=== PATIENT | female | born 1995 | race Caucasian/White ===

== ENCOUNTER 2018-02-19 09:25 | Emergency (ER) | payer OTHER ==
[2018-02-19 09:38] VITALS: RESP 16; TEMP 98.2
[2018-02-19] MEDS ORDERED: SODIUM CHLORIDE 0.9% 1,000 ML IV ONE (10:09)
[2018-02-19] MEDS ORDERED: KETOROLAC 30 MG/ML 1 ML VIAL IVP STA (10:09)
--- NOTE | 2018-02-19 10:12 | ED ---
Female Urogenital HPI - General Chief complaint: Vaginal Bleeding Stated complaint: Vaginal bleeding Time Seen by Provider: 02/19/18 09:47 Source: patient, RN notes reviewed, old records reviewed Mode of arrival: ambulatory Limitations: no limitations - History of Present Illness Initial comments: This patient's a 23-year-old female presents emergency Department here tingling vaginal bleeding. Patient reports that she had her last menstrual period which ended 4 days ago. This is abnormal time for any bleeding. She does have the next one on she's had this in her arm for 3 years. Patient reports this was placed by Dr. Jordan, her EVAPORATOR OPERATOR. She has had history of 2 children. Patient states that today she's been having increased bleeding, and went through 3 tampons within the past 3 hours. Patient states that she is feeling shaky, complains of vaginal cramping. She does have history of ovarian cysts. Last Menstrual Period: 02/15/18 - Related Data Previous Rx's Medication Instructions Recorded HYDROcodone/APAP 5-325MG [[place] 1 tab PO Q6HR PRN #10 tab 05/14/16 5-325] Ibuprofen [Motrin] 600 mg PO Q6HR PRN #30 tab 05/14/16 Orphenadrine [Norflex] 100 mg PO Q12H PRN #12 tablet.er 05/14/16 Acyclovir 400 mg PO TID 10 Days tablet 05/19/16 Sulfamethoxazole/Trimethoprim 1 each PO Q12H 10 Days tab 05/19/16 [Bactrim DS 800-160 mg] Nitrofurantoin Monohyd/M-Cryst 100 mg PO Q12HR #14 cap 02/19/18 [Macrobid] Allergies Allergy/AdvReac Type Severity Reaction Status Date / Time No Known Allergies Allergy Verified 02/19/18 09:37 Review of Systems ROS Statement: Those systems with pertinent positive or pertinent negative responses have been documented in the HPI. ROS Other: All systems not noted in ROS Statement are negative. Past Medical History Past Medical History: No Reported History History of Any Multi-Drug Resistant Organisms: None Reported Past Surgical History: No Surgical Hx Reported Past Anesthesia/Blood Transfusion Reactions: No Reported Reaction Past Psychological History: No Psychological Hx Reported Smoking Status: Never smoker Past Alcohol Use History: Occasional Past Drug Use History: None Reported General Exam - General Exam Comments Initial Comments: This is a 23-year-old female. Alert and oriented. No significant distress. Limitations: no limitations General appearance: alert, in no apparent distress Head exam: Present: atraumatic, normocephalic, normal inspection Eye exam: Present: normal appearance, PERRL, EOMI. Absent: scleral icterus, conjunctival injection, periorbital swelling ENT exam: Present: normal exam, mucous membranes moist Neck exam: Present: normal inspection. Absent: tenderness, meningismus, lymphadenopathy Respiratory exam: Present: normal lung sounds bilaterally. Absent: respiratory distress, wheezes, rales, rhonchi, stridor Cardiovascular Exam: Present: regular rate, normal rhythm, normal heart sounds. Absent: systolic murmur, diastolic murmur, rubs, gallop, clicks GI/Abdominal exam: Present: soft, normal bowel sounds. Absent: distended, tenderness, guarding, rebound, rigid Extremities exam: Present: normal inspection, full ROM, normal capillary refill. Absent: tenderness, pedal edema, joint swelling, calf tenderness Back exam: Present: normal inspection Neurological exam: Present: alert, oriented X3, CN II-XII intact Psychiatric exam: Present: normal affect, normal mood Skin exam: Present: warm, dry, intact, normal color. Absent: rash Course Vital Signs 02/19/18 09:33 Temperature 98.2 F Pulse Rate 68 Respiratory 16 Rate Blood Pressure 139/76 O2 Sat by Pulse 100 Oximetry Medical Decision Making - Medical Decision Making 23-year-old female presents for his pharmacy with increased vaginal bleeding onset today. Patient's last menstrual period was actually 4 days ago. She is concerned for what she is having bleeding at this time. Asians bleeding is most likely due to the fact that she is needing replacement of her Implanon control. She does report some cramping pain. She does have history of ovarian cysts. This in THE SHOW FOR SIMILAR LEFT OVARIAN CYST. PATIENT DOES HAVE SOME BLEEDING ON VAGINAL EXAM, NO CERVICAL MOTION TENDERNESS. I DID OBTAIN GENITAL CULTURES. PATIENT LABWORK WAS OTHERWISE UNREMARKABLE. URINALYSIS IS POSITIVE FOR MILD INFECTION POSITIVE NITRATE. WE'LL PUT THE PATIENT ON MACROBID FOR A UTI. I DID DISCUSS CLOSE FOLLOW-UP WITH PRIMARY CARE PHYSICIAN. PATIENT HISTORY PLAN WILL COMPLY. RETURN PARAMETERS WERE DISCUSSED. - Lab Data Result diagrams: 02/19/18 10:15 02/19/18 10:15 Lab Results 02/19/18 02/19/18 02/19/18 Range/Units 10:15 10:15 10:15 WBC 9.4 (3.8-10.6) k/uL RBC 4.69 (3.80-5.40) m/uL Hgb 13.0 (11.4-16.0) gm/dL Hct 38.8 (34.0-46.0) % MCV 82.7 (80.0-100.0) fL MCH 27.8 (25.0-35.0) pg MCHC 33.6 (31.0-37.0) g/dL RDW 13.6 (11.5-15.5) % Plt Count 261 (150-450) k/uL Neutrophils % 70 % Lymphocytes % 26 % Monocytes % 3 % Eosinophils % 1 % Basophils % 0 % Neutrophils # 6.6 (1.3-7.7) k/uL Lymphocytes # 2.4 (1.0-4.8) k/uL Monocytes # 0.3 (0-1.0) k/uL Eosinophils # 0.1 (0-0.7) k/uL Basophils # 0.0 (0-0.2) k/uL PT (9.0-12.0) sec INR (<1.2) APTT (22.0-30.0) sec Sodium 138 (137-145) mmol/L Potassium 4.7 (3.5-5.1) mmol/L Chloride 106 (98-107) mmol/L Carbon Dioxide 25 (22-30) mmol/L Anion Gap 7 mmol/L BUN 16 (7-17) mg/dL Creatinine 0.51 L (0.52-1.04) mg/dL Est GFR (CKD-EPI)AfAm >90 (>60 ml/min/1.73 sqM) Est GFR (CKD-EPI)NonAf >90 (>60 ml/min/1.73 sqM) Glucose 92 (74-99) mg/dL Calcium 10.4 H (8.4-10.2) mg/dL Total Bilirubin 0.4 (0.2-1.3) mg/dL AST 24 (14-36) U/L ALT 34 (9-52) U/L Alkaline Phosphatase 54 (38-126) U/L Total Protein 6.9 (6.3-8.2) g/dL Albumin 4.1 (3.5-5.0) g/dL Urine Color Urine Appearance (Clear) Urine pH (5.0-8.0) Ur Specific [place] (1.001-1.035) Urine Protein (Negative) Urine Glucose (UA) (Negative) Urine Ketones (Negative) Urine Blood (Negative) Urine Nitrite (Negative) Urine Bilirubin (Negative) Urine Urobilinogen (<2.0) mg/dL Ur Leukocyte Esterase (Negative) Urine RBC (0-5) /hpf Urine WBC (0-5) /hpf Ur Squamous Epith Cells (0-4) /hpf Urine Bacteria (None) /hpf Urine Mucus (None) /hpf Urine HCG, Qual Not Detected (Not Detectd) 02/19/18 02/19/18 Range/Units 10:15 10:15 WBC (3.8-10.6) k/uL RBC (3.80-5.40) m/uL Hgb (11.4-16.0) gm/dL Hct (34.0-46.0) % MCV (80.0-100.0) fL MCH (25.0-35.0) pg MCHC (31.0-37.0) g/dL RDW (11.5-15.5) % Plt Count (150-450) k/uL Neutrophils % % Lymphocytes % % Monocytes % % Eosinophils % % Basophils % % Neutrophils # (1.3-7.7) k/uL Lymphocytes # (1.0-4.8) k/uL Monocytes # (0-1.0) k/uL Eosinophils # (0-0.7) k/uL Basophils # (0-0.2) k/uL PT 9.8 (9.0-12.0) sec INR 1.0 (<1.2) APTT 23.2 (22.0-30.0) sec Sodium (137-145) mmol/L Potassium (3.5-5.1) mmol/L Chloride (98-107) mmol/L Carbon Dioxide (22-30) mmol/L Anion Gap mmol/L BUN (7-17) mg/dL Creatinine (0.52-1.04) mg/dL Est GFR (CKD-EPI)AfAm (>60 ml/min/1.73 sqM) Est GFR (CKD-EPI)NonAf (>60 ml/min/1.73 sqM) Glucose (74-99) mg/dL Calcium (8.4-10.2) mg/dL Total Bilirubin (0.2-1.3) mg/dL AST (14-36) U/L ALT (9-52) U/L Alkaline Phosphatase (38-126) U/L Total Protein (6.3-8.2) g/dL Albumin (3.5-5.0) g/dL Urine Color Yellow Urine Appearance Cloudy H (Clear) Urine pH 6.5 (5.0-8.0) Ur Specific [place] 1.022 (1.001-1.035) Urine Protein Trace H (Negative) Urine Glucose (UA) Negative (Negative) Urine Ketones Negative (Negative) Urine Blood Moderate H (Negative) Urine Nitrite Positive H (Negative) Urine Bilirubin Negative (Negative) Urine Urobilinogen <2.0 (<2.0) mg/dL Ur Leukocyte Esterase Trace H (Negative) Urine RBC 1 (0-5) /hpf Urine WBC 2 (0-5) /hpf Ur Squamous Epith Cells 5 H (0-4) /hpf Urine Bacteria Occasional H (None) /hpf Urine Mucus Occasional H (None) /hpf Urine HCG, Qual (Not Detectd) - Radiology Data Radiology results: report reviewed Overall some appearing left ovarian cyst measuring 4.7 cm. No evidence of ovarian torsion however greater then 2.5 cm this can have increased risk for vision torsion. Small amount of pelvic fluid is likely physiologic. Disposition Clinical Impression: Abnormal uterine bleeding, UTI (urinary tract infection) Disposition: HOME SELF-CARE Condition: Good Instructions: Urinary Tract Infection in Women (ED), Dysfunctional Uterine Bleeding (ED) Additional Instructions: Patient advised to follow-up with primary care physician and EVAPORATOR OPERATOR about abnormal uterine bleeding and needing replacement of your Implanon or having it removed. Return to the emergency department if any alarming signs or symptoms occur. Prescriptions: Nitrofurantoin Monohyd/M-Cryst [Macrobid] 100 mg PO Q12HR #14 cap Is patient prescribed a controlled substance at d/c from ED?: No Referrals: None,Stated [Primary Care Provider] - 1-2 days Xiomy Howell MD [STAFF PHYSICIAN] - 1-2 days Time of Disposition: 11:52
[2018-02-19 10:45] LABS: Basophils % (A) 0 %; Eosinophils # (A) 0.1 k/uL (0-0.7); Eosinophils % (A) 1 %; HCT 38.8 % (34.0-46.0); Lymphocytes # (A) 2.4 k/uL (1.0-4.8); Lymphocytes % (A) 26 %; MCH 27.8 pg (25.0-35.0); MCHC 33.6 g/dL (31.0-37.0); MCV 82.7 fL (80.0-100.0); Mean Platelet Volume 7.8; Monocytes # (A) 0.3 k/uL (0-1.0); Monocytes % (A) 3 %; Neutrophils # (A) 6.6 k/uL (1.3-7.7); Neutrophils % (A) 70 %; Platelet Count 261 k/uL (150-450); RBC 4.69 m/uL (3.80-5.40); RDW 13.6 % (11.5-15.5); WBC 9.4 k/uL (3.8-10.6)
[2018-02-19 10:54] LABS: Partial Thromboplastin Time 23.2 sec (22.0-30.0); Prothrombin Time 9.8 sec (9.0-12.0)
[2018-02-19 10:55] LABS: ALT 34 U/L (9-52); AST 24 U/L (14-36); Albumin 4.1 g/dL (3.5-5.0); Alkaline Phosphatase 54 U/L (38-126); Anion Gap 7 mmol/L; Blood Urea Nitrogen 16 mg/dL (7-17); Calcium 10.4 mg/dL (8.4-10.2); Carbon Dioxide 25 mmol/L (22-30); Chloride 106 mmol/L (98-107); Glucose 92 mg/dL (74-99); Potassium 4.7 mmol/L (3.5-5.1); Sodium 138 mmol/L (137-145); Total Bilirubin 0.4 mg/dL (0.2-1.3); Total Protein 6.9 g/dL (6.3-8.2)
--- NOTE | 2018-02-19 11:23 | US ---
EXAMINATION TYPE: US transvaginal DATE OF EXAM: 02/19/2018 COMPARISON: NONE CLINICAL HISTORY: Pain. Patient states her period ending 4 days ago and she is now having pelvic cram ping and bleeding today, irregular cycles, 2, para 2, on control. TECHNIQUE: Transvaginal ER exam. Date of LMP: 02/10/2018 EXAM MEASUREMENTS: Uterus: 9.0 x 4.5 x 5.8 cm Endometrial Stripe: 0.6 cm Right Ovary: 3.7 x 2.6 x 2.2 cm Left Ovary: 5.9 x 4.0 x 4.3 cm 1. Uterus: anteverted 2. Endometrium: wnl 3. Right Ovary: multiple follicles, largest = 1.4cm 4. Left Ovary: 4.7 x 3.4 x 3.8cm cyst Spectral, color and waveform doppler imaging shows good arterial and venous flow within the ovaries ; there is no evidence for ovarian torsion. 5. Bilateral Adnexa: small amount of free fluid seen adjacent to both ovaries 6. Posterior cul-de-sac: small amount of free fluid seen IMPRESSION: Overall simple appearing left ovarian cyst measuring up to 4.7 cm. No current evidence of ovarian torsion, however greater than 25 cm cysts can increase the risk for ovarian torsion. Small a mount of pelvic fluid is likely physiologic in nature.
[2018-02-19 11:42] LABS: Appearance,Urine Cloudy (Clear); Bacteria,Urine Occasional /hpf; Bilirubin,Urine Negative (Negative); Blood,Urine Moderate (Negative); Color,Urine Yellow; Glucose,Urine (UA) Negative (Negative); Ketones,Urine Negative (Negative); Leukocyte Esterase,Urine Trace (Negative); Mucus,Urine Occasional /hpf; Nitrite,Urine Positive (Negative); PH, Urine 6.5 (5.0-8.0); Protein,Urine Trace (Negative); RBC,Urine 1 /hpf (0-5); Specific Gravity,Urine 1.022 (1.001-1.035); Squamous Epithelial Cell,Urine 5 /hpf (0-4); Urobilinogen,Urine <2.0 mg/dL (<2.0); WBC,Urine 2 /hpf (0-5)
[2018-02-19 12:12] VITALS: BP 129/80; PULSE 60
[2018-02-20 14:04] LABS: C. trachomatis,PCR Negative (Neg,Equiv); Chlamydia trachomatis Source Vagina; N. gonorrhoeae,PCR Negative (Neg,Equiv); Neisseria Source Vagina
== END 2018-02-19 12:25 | disposition home or self-care (01) ==
LOC: EC 09:25
DX: N93.9 Abnormal uterine and vaginal bleeding, unspecified (principal); N39.0 Urinary tract infection, site not specified; N83.202 Unspecified ovarian cyst, left side
CPT/HCPCS: 36415; 80053; 85025; 85610; 85730; 81001; 81025; 87808; 87491; 87591; 87070; 87205; 93975; 76830; 99284; 96374; 96361; J1885

== ENCOUNTER 2020-05-29 06:15 | Inpatient (IN) | payer OTHER ==
[2020-05-29] MEDS ORDERED: OXYTOCIN 10 UNIT/ML 1 ML VIAL IM PRN (06:32)
[2020-05-29] MEDS ORDERED: METHYLERGONOVINE 0.2 MG/ML 1 ML AMP IM PRN (06:32)
[2020-05-29] MEDS ORDERED: TERBUTALINE 1 MG/ML VIAL SQ PRN (06:32)
[2020-05-29] MEDS ORDERED: LIDOCAINE 0.5% (PF) 5 MG/ML (50 ML SDV) SQ PRN (06:32)
[2020-05-29] MEDS ORDERED: CARBOPROST TROMETHAMINE 250 MCG/ML 1 ML AMP IM PRN (06:32)
[2020-05-29] MEDS: LACTATED RINGERS 1,000 ML IV SCH ×3 (06:45→16:55)
[2020-05-29] MEDS ORDERED: OXYTOCIN 30 UNITS/500 ML NS 30 UNIT in SALINE 1 500ML.BAG IV SCH (06:45)
[2020-05-29 07:05] LABS: Basophils % (A) 0 %; Eosinophils # (A) 0.1 k/uL (0-0.7); Eosinophils % (A) 1 %; HCT 31.7 % (34.0-46.0); HGB 10.7 gm/dL (11.4-16.0); Lymphocytes # (A) 2.7 k/uL (1.0-4.8); Lymphocytes % (A) 27 %; MCH 28.2 pg (25.0-35.0); MCHC 33.8 g/dL (31.0-37.0); MCV 83.3 fL (80.0-100.0); Mean Platelet Volume 8.7; Monocytes # (A) 0.3 k/uL (0-1.0); Monocytes % (A) 3 %; Neutrophils # (A) 6.7 k/uL (1.3-7.7); Neutrophils % (A) 68 %; Platelet Count 233 k/uL (150-450); RDW 14.7 % (11.5-15.5); WBC 9.9 k/uL (3.8-10.6)
[2020-05-29] MEDS ORDERED: BUTORPHANOL 1 MG/ML 1 ML VIAL IV PRN (08:42)
--- NOTE | 2020-05-29 08:47 | P.HPOB ---
History of Present Illness H&P Date: 05/29/20 Chief Complaint: 39-6/7 weeks, elective induction The patient is a 25-year-old 3 para 2 scissors or 2 admitted at 39-6/7 weeks as established by last menstrual period and confirmed by 20 week ultrasound. She is admitted for elective induction of labor with a favorable cervix. Her has been otherwise uncomplicated though she has expressed desire for tubal ligation should the opportunity to present itself while on labor and delivery. Consent was signed in the office. On labor and delivery, all signs are reassuring with a category 1 heart rate tracing. Group B strep status is negative. Obstetrical history: 3 para 2 scissors or 2 with 2 term vaginal deliveries without complications. Current statistics are listed in history of present illness. EDC of 05/30/2020 was established by last menstrual period and confirmed by 20 week ultrasound. Laboratory workup demonstrates a blood type of A+ with a negative antibody screen. Rubella status is immune. Remainder of the laboratory workup was within normal limits though she did have a urinary tract infection which was ultimately cured. One hour Glucola was normal and group B strep status is negative. Gynecologic history: Unremarkable with no history of any infections to include STDs. Review of Systems Review of systems is confined to history of present illness. Past Medical History Past Medical History: No Reported History History of Any Multi-Drug Resistant Organisms: None Reported Past Surgical History: No Surgical Hx Reported Past Anesthesia/Blood Transfusion Reactions: No Reported Reaction Past Psychological History: No Psychological Hx Reported Smoking Status: Never smoker Past Alcohol Use History: None Reported Past Drug Use History: None Reported Medications and Allergies Allergies Allergy/AdvReac Type Severity Reaction Status Date / Time No Known Allergies Allergy Verified 02/19/18 12:28 Exam Vital Signs Temp Pulse Resp BP Pulse Ox 05/29/20 06:29 97.0 F L 105 H 16 128/86 99 Intake and Output 05/28/20 05/29/20 05/29/20 22:59 06:59 14:59 Other: Weight 91.172 kg In general, this is a well-developed, well-nourished white female in no acute distress. Her heart has a regular rhythm and rate without murmur. Her lungs are clear to auscultation bilaterally in all fagan. Her abdomen is gravid, nondistended, has normal active bowel sounds, soft, nontender, and without any palpable masses aside from uterine fundus. Her extremities are without any cyanosis, clubbing, or edema and are nontender to palpation bilaterally. Digital cervical examination demonstrated her cervix to be 2 cm dilated, 50% effaced, the vertex in presentation at -2 station. Artificial rupture of membranes is carried out demonstrating copious clear fluid. Results Result Diagrams: 05/29/20 06:43 Abnormal Lab Results - Last 24 Hours (Table) 05/29/20 Range/Units 06:43 Hgb 10.7 L (11.4-16.0) gm/dL Hct 31.7 L (34.0-46.0) % Assessment and Plan (1) Term Current Visit: Yes Status: Acute Code(s): Z34.90 - ENCNTR FOR SUPRVSN OF NORMAL , UNSP, UNSP TRIMESTER SNOMED Code(s): 43484491 Plan: The patient is admitted for elective induction of labor. Pitocin augmentation has been started and she has undergone artificial rupture of membranes. She will have close maternal and surveillance and expectant management will be practice. She is a good candidate for either IV or epidural analgesia, whichever she may choose.
[2020-05-29] MEDS ORDERED: SODIUM CHLORIDE 0.9% 100 ML BAG ONE (13:21)
[2020-05-29] MEDS ORDERED: ROPIVACAINE 5MG/ML 20ML VIAL ONE (13:21)
[2020-05-29] MEDS ORDERED: fentaNYL (PF) 50 MCG/ML 5 ML AMP ONE (13:21)
[2020-05-29] MEDS ORDERED: BENZOCAINE/MENTHOL SPRAY 1 GM/SPRAY AEROSOL TOPICAL PRN (17:38)
[2020-05-29] MEDS ORDERED: diphenhydrAMINE 25 MG CAP PO PRN (17:38)
[2020-05-29] MEDS ORDERED: diphenhydrAMINE 50 MG CAP PO PRN (17:38)
[2020-05-29] MEDS ORDERED: diphenhydrAMINE 50 MG/ML 1 ML VIAL IVP PRN ×2 (17:38)
[2020-05-29] MEDS ORDERED: ZOLPIDEM 5 MG TAB PO PRN (17:38)
[2020-05-29] MEDS ORDERED: ACETAMINOPHEN TAB 325 MG TAB PO PRN (17:38)
[2020-05-29] MEDS ORDERED: HYDROcodone/APAP 7.5-325MG 1 EACH TAB PO PRN (17:38)
[2020-05-29] MEDS ORDERED: SIMETHICONE 80 MG CHEWABLE PO PRN (17:38)
[2020-05-29] MEDS ORDERED: HYDROcodone/APAP 5-325MG 1 EACH TAB PO PRN (17:38)
[2020-05-29] MEDS ORDERED: HYDROCORTISONE 2.5% RECTAL CREAM 30 GM TUBE RECTAL PRN (17:38)
--- NOTE | 2020-05-29 17:41 | P.PROBDLV ---
Vaginal Delivery Note - . Vaginal Delivery Note: The patient is a 25-year-old 3 para 2 scissors or 2 admitted at 39-6/7 weeks by good dating parameters perches admitted for elective induction of labor with all signs reassuring. Her has been uncomplicated and group B strep status is negative. On labor and delivery, she had Pitocin started followed by artificial rupture of membranes for clear fluid of which there was a great deal. She made progress into the active phase of labor which time an ep idural catheter was placed for analgesia. She then made steady progress through the active phase to complete and pushed over the course of approximately 20 minutes to a normal spontaneous vaginal delivery of a viable 8 lbs. 1 oz. baby boy with Apgars of 8 at 1 minute and 9 at 5 minutes delivered in the right occiput anterior position. The placenta was delivered spontaneously, intact, and grossly normal with a grossly normal, centrally inserted three-vessel cord. There were no significant lacerations of the perineum, vagina, or cervix. Estimated blood loss was approximately 150 mL. There were no complications. All sponge, instrument, and needle counts were correct. Both mother and are resting comfortably in recovery.
[2020-05-29] MEDS ORDERED: OXYTOCIN 20 UNITS/1000 ML NS 1,000 ML IV SCH (17:45)
[2020-05-29] MEDS: IBUPROFEN 600 MG TAB PO PRN (20:51)
[2020-05-29] MEDS: SENNOSIDES-DOCUSATE SODIUM 1 EACH TAB PO SCH (20:51)
[2020-05-30] MEDS: IBUPROFEN 600 MG TAB PO PRN (06:01)
[2020-05-30 08:10] LABS: Basophils % (A) 0 %; Eosinophils # (A) 0.1 k/uL (0-0.7); Eosinophils % (A) 1 %; HCT 28.8 % (34.0-46.0); HGB 9.8 gm/dL (11.4-16.0); Lymphocytes # (A) 2.6 k/uL (1.0-4.8); Lymphocytes % (A) 19 %; MCH 28.5 pg (25.0-35.0); MCHC 33.9 g/dL (31.0-37.0); MCV 84.1 fL (80.0-100.0); Mean Platelet Volume 9.4; Monocytes # (A) 0.7 k/uL (0-1.0); Monocytes % (A) 5 %; Neutrophils % (A) 74 %; Platelet Count 204 k/uL (150-450); RBC 3.42 m/uL (3.80-5.40); RDW 14.9 % (11.5-15.5); WBC 13.4 k/uL (3.8-10.6)
[2020-05-30] MEDS: SENNOSIDES-DOCUSATE SODIUM 1 EACH TAB PO SCH (10:02)
--- NOTE | 2020-05-30 11:10 | P.DS ---
Providers Date of admission: 05/29/20 06:16 Expected date of discharge: 05/30/20 Attending physician: Juanpablo Richards Primary care physician: Stated None - Discharge Diagnosis(es) (1) Term Current Visit: Yes Status: Acute (2) Normal spontaneous vaginal delivery Current Visit: Yes Status: Acute Hospital Course: The patient is a 25-year-old 3 para 2001 admitted at 39-6/7 weeks by good dating parameters. She is admitted for elective induction with favorable cervix. Her was uncomplicated though she has signed consent for tubal ligation which will be performed at approximate 5-6 weeks . On labor and delivery, all signs reassuring. She was group B strep status negative. She had Pitocin started followed by artificial rupture of membranes. She had an epidural catheter placed around the onset of the active phase of labor. She ultimately made progress to complete and then pushed to a normal spontaneous vaginal delivery of a viable 8 lbs. 1 oz. baby the boy with Apgars of 8 at 1 minute and 9 at 5 minutes. Her course was unremarkable vital signs or any stable and her temperature was afebrile throughout. She was deemed stable for discharge on day #1 was discharged home to follow-up in the office in 6 weeks' time routinely. Discharge instructions included calling for any significantly increased bleeding or foul-smelling lochia, significantly increased fever or abdominal pain, perineal complaints, breast complaints, or anything else that concerned her. She was additionally instructed to have nothing in the vagina for at least 6 weeks time to include intercourse. She understood her instructions and agrees to follow up as noted above. Discharge medications included only [id number] analgesic pain medications as needed. Maternal blood type is A+ and rubella status is immune. Procedures: #1. Pitocin induction #2. Artificial rupture of membranes #3. Epidural analgesia 4. Normal spontaneous vaginal delivery Patient Condition at Discharge: Stable Plan - Discharge Summary Follow up Appointment(s)/Referral(s): Juanpablo Richards MD [STAFF PHYSICIAN] - 6 Weeks Discharge Disposition: HOME SELF-CARE
[2020-05-30 16:00] VITALS: BP 125/70; PULSE 86; RESP 16; TEMP 98.5
== END 2020-05-30 18:10 | disposition home or self-care (01) | DRG 807 ==
LOC: 4FBP 06:16
PROVIDERS: ADMIT Obstetrics & Gynecology; ATTEND Obstetrics & Gynecology
PROC: 10E0XZZ Delivery of Products of Conception, External Approach (ICD-10-PCS; principal; 2020-05-29)
PROC: 10907ZC Drainage of Amniotic Fluid, Therapeutic from Products of Conception, Via Natural or Artificial Opening (ICD-10-PCS; 2020-05-29)
PROC: 3E033VJ Introduction of Other Hormone into Peripheral Vein, Percutaneous Approach (ICD-10-PCS; 2020-05-29)
PROC: 3E0R3BZ Introduction of Anesthetic Agent into Spinal Canal, Percutaneous Approach (ICD-10-PCS; 2020-05-29)
DX: O80 Encounter for full-term uncomplicated delivery (principal); Z37.0 Single live birth; Z3A.39 39 weeks gestation of pregnancy; Z87.440 Personal history of urinary (tract) infections
CPT/HCPCS: 85025; 86850; 86900; 86901

== ENCOUNTER 2022-09-19 00:08 | Inpatient (IN) | payer OTHER ==
--- NOTE | 2022-09-19 00:17 | ED ---
Chest Pain HPI - General Source: patient, RN notes reviewed Mode of arrival: ambulatory Limitations: no limitations - History of Present Illness MD Complaint: chest pain, other (Shortness of breath, headaches, leg swelling) Onset/Timin -: days(s) Context: recent surgery <Cait Noyola - Last Filed: 09/19/22 00:14> <Danie Telles - Last Filed: 09/19/22 03:08> - General Chief Complaint: Chest Pain Stated Complaint: Headache, Pain and Swelling in right leg Time Seen by Provider: 09/19/22 00:09 - History of Present Illness Initial Comments: This is a 27-year-old female who presents to the emergency department for right leg pain/swelling, headaches, chest pain, and shortness of breath. Patient had a 10 days ago and has felt ill ever since. 2 days ago, she started to notice pain and swelling to the right leg that seems to be getting worse. Also reports chest pain, shortness of breath, and headaches. This was her fourth but the first . She is not currently breast-feeding. Denies any history of blood clots. (Cait Noyola) Dictation was produced using [employer] dictation software. please excuse any grammatical, word or spelling errors. Chief Complaint: 27-year-old female presents emergency department for posterior headache, right lower extremity swelling and shortness of breath History of Present Illness: Patient is 27-year-old female she is postop day 6 status post . Patient had uncomplicated . No gestational hypertension. She presents to the ER for 2-3 days of posterior occipital headache, shortness of breath and right lower extremity swelling. Patient also complaining of some abdominal pain. She went online and read about her symptoms became concerned and came to the emergency room. Patient states that her headache is mild. The ROS documented in this emergency department record has been reviewed and confirmed by me. Those systems with pertinent positive or negative responses have been documented in the HPI. All other systems are other negative and/or noncontributory. PHYSICAL EXAM: General Impression: Alert and oriented x3, not in acute distress HEENT: Normocephalic atraumatic, extra-ocular movements intact, pupils equal and reactive to light bilaterally, mucous membranes moist. Cardiovascular: Heart regular rate and rhythm Chest: Able to complete full sentences, no retractions, no tachypnea, clear to auscultation bilaterally Abdomen: abdomen soft, non-tender, non-distended, no organomegaly Musculoskeletal: Pulses present and equal in all extremities, very mild pitting edema to the bilateral lower extremities Motor: no focal deficits noted Neurological: CN II-XII grossly intact, no focal motor or sensory deficits noted Skin: Intact with no visualized rashes Psych: Normal affect and mood ED course: 27-year-old female presents emergency department for symptoms concerning for preeclampsia. Initial blood pressure in triage was 173/103. Repeat blood pressure 161/99. Prior preeclampsia protocol Dr. Richards was contacted and made aware of the patient. Rest of vital signs are unremarkable. Nursing notes and chart review was performed EKG interpreted by me: Ventricular rate 55, sinus bradycardia,. 144, QRS 14, QTC 369. No PA prolongation, no QTC prolongation, no ST or T-wave changes noted. Overall, this EKG is unremarkable (Danie Telles) - Related Data Home Medications Medication Instructions Recorded Confirmed No Known Home Medications 09/09/22 09/09/22 Allergies Allergy/AdvReac Type Severity Reaction Status Date / Time No Known Allergies Allergy Verified 09/19/22 00:19 Review of Systems ROS Other: All systems not noted in ROS Statement are negative. <Cait Noyola - Last Filed: 09/19/22 00:14> ROS Other: All systems not noted in ROS Statement are negative. <Danie Telles - Last Filed: 09/19/22 03:08> ROS Statement: Those systems with pertinent positive or pertinent negative responses have been documented in the HPI. Past Medical History Past Medical History: No Reported History History of Any Multi-Drug Resistant Organisms: None Reported Past Surgical History: No Surgical Hx Reported Past Anesthesia/Blood Transfusion Reactions: No Reported Reaction Past Psychological History: No Psychological Hx Reported Smoking Status: Never smoker Past Alcohol Use History: None Reported Past Drug Use History: None Reported - Past Family History Mother Family Medical History: No Reported History <Cait Noyola - Last Filed: 09/19/22 00:14> General Exam Limitations: no limitations <Cait Noyola - Last Filed: 09/19/22 00:14> - General Exam Comments Initial Comments: Visual Physical Exam Vital signs reviewed General: Well-appearing, nontoxic, no acute distress. Head: Normocephalic, atraumatic Eyes: PERRLA, EOMI ENT: Airway patent Chest: Nonlabored breathing Skin: No visual rash, normal skin tone Neuro: Alert and oriented 3 Musculoskeletal: Right leg swelling and tenderness. No erythema or increased heat. (Cait Noyola) Course Vital Signs 09/19/22 09/19/22 09/19/22 00:09 02:04 02:32 Temperature 98.8 F Pulse Rate 103 H 66 51 L Respiratory 22 16 16 Rate Blood Pressure 173/103 161/99 179/101 O2 Sat by Pulse 99 99 97 Oximetry 09/19/22 02:48 Temperature Pulse Rate 49 L Respiratory 20 Rate Blood Pressure 149/75 O2 Sat by Pulse 96 Oximetry Chest Pain MDM <Danie Telles - Last Filed: 09/19/22 03:08> - MDM Was pt. sent in by a medical professional or institution (, PA, WARRANTY CLERK, urgent care, hospital, or [place] health care facility...) When possible be specific @ -No Did you speak to anyone other than the patient for history (EMS, parent, family, police, friend...)? What history was obtained from this source @ -No Did you review nursing and triage notes (agree or disagree)? Why? @ -I reviewed and agree with nursing and triage notes Were old charts reviewed (outside hosp., previous admission, EMS record, old EKG, old radiological studies, urgent care reports/EKG's, [place] health care facility records)? Report findings @ -Prior OB inpatient notes reviewed including operative report and ELEVATOR SERVICE TECHNICIAN history and physical Differential Diagnosis (chest pain, altered mental status, abdominal pain women, abdominal pain men, vaginal bleeding, musculoskeletal, weakness, fever, dyspnea, syncope, headache, dizziness, GI bleed, back pain, seizure, CVA, palpatations, mental health)? @ -Differential Dyspnea: Coronary syndrome, arrhythmia, tamponade, asthma, COPD, pulmonary embolism, pneumonia, pneumothorax, pulmonary effusion, anaphylaxis, diabetic ketoacidosis, flailed chest, pulmonary contusion, diaphragmatic rupture, anemia, neuromuscular, this is not meant to be an all-inclusive list. EKG interpreted by me (3pts min.). @ -As above X-rays interpreted by me (1pt min.). @ -non Acute CT interpreted by me (1pt min.). @ -No acute processes U/S interpreted by me (1pt. min.). @ -No DVT What testing was considered but not performed or refused? (CT, X-rays, U/S, labs)? Why? @ -See above What meds were considered but not given or refused? Why? @ -Antihypertensive medications were considered however after discussion with ELEVATOR SERVICE TECHNICIAN's recommendation was magnesium. Did you discuss the management of the patient with other professionals (professionals i.e. , PA, WARRANTY CLERK, lab, RT, psych nurse, social media specialist, commercial light fixture assembler, teacher, escrow officer, pillowcase cutter)? Give summary @ -Discussed Dr. Richards who is patient's primary seismographer Was smoking cessation discussed for >3mins.? @ -No Was critical care preformed (if so, how long)? @ -yes, 33 minutes Were there social determinants of health that impacted care today? How? (Homelessness, low income, unemployed, alcoholism, drug addiction, transportation, low edu. Level, literacy, decrease access to med. care, assisted, rehab)? @ -No Was there de-escalation of care discussed even if they declined (Discuss DNR or withdrawal of care, Hospice)? DNR status @ -No What co-morbidities impacted this encounter? (DM, HTN, Smoking, COPD, CAD, Cancer, CVA, ARF, Chemo, Hep., AIDS, mental health diagnosis, sleep apnea, morbid obesity)? @ -None Was patient admitted / discharged? Hospital course, mention meds given and route, prescriptions, significant lab abnormalities, going to OR and other pertinent info. @ -19-year-old female presents emergency department for symptoms of preeclampsia. Patient's blood pressures were increased in the emergency Department with levels alert measuring up to 179/101. Laboratory evaluation was obtained. Labs not terribly obvious for frequent preeclampsia. Pending urine studies. Clinical case was discussed with Dr. Richards requested patient be admitted to the hospital for magnesium infusion and medical monitoring. Undiagnosed new problem with uncertain prognosis? @ -No Drug Therapy requiring intensive monitoring for toxicity (Heparin, Nitro, Insulin, Cardizem)? @ -No Were any procedures done? @ -No Diagnosis/symptom? Acute, or Chronic, or Acute on Chronic? Uncomplicated (without systemic symptoms) or Complicated (systemic symptoms)? @ -1. Acute preeclampsia Side effects of treatment? @ -No Exacerbation, Progression, or Severe Exacerbation? @ -No Poses a threat to life or bodily function? How? (Chest pain, [place], NH, pneumonia, PE, COPD, DKA, ARF, appy, cholecystitis, CVA, Diverticulitis, Homicidal, Suicidal, threat to staff... and all critical care pts) @ -yes (Dnaie Telles) Disposition <Cait Noyola - Last Filed: 09/19/22 00:14> Decision Time: 03:08 <Danie Telles - Last Filed: 09/19/22 03:08> Clinical Impression: Preeclampsia Disposition: ADMITTED IP TO THIS HOSP Condition: Serious Referrals: None,Stated [Primary Care Provider] - 1-2 days
--- NOTE | 2022-09-19 00:53 | US ---
EXAMINATION TYPE: US venous doppler duplex LE RT DATE OF EXAM: 09/19/2022 12:14 AM COMPARISON: NONE CLINICAL HISTORY: Leg pain and swelling. Right leg pain SIDE PERFORMED: Right TECHNIQUE: The lower extremity deep venous system is examined utilizing real time linear array sonog jennie with graded compression, doppler sonography and color-flow sonography. VESSELS IMAGED: Common Femoral Vein Deep Femoral Vein Greater Saphenous Vein * Femoral Vein Popliteal Vein Small Saphenous Vein * Proximal Calf Veins (* superficial vessels) Right Leg: Negative for DVT IMPRESSION: No evidence of deep vein thrombosis in the right leg.
[2022-09-19 01:31] LABS: Basophils % (A) 0 %; Eosinophils # (A) 0.1 k/uL (0-0.7); Eosinophils % (A) 1 %; HCT 26.8 % (34.0-46.0); HGB 8.8 gm/dL (11.4-16.0); Lymphocytes # (A) 2.9 k/uL (1.0-4.8); Lymphocytes % (A) 32 %; MCHC 32.8 g/dL (31.0-37.0); MCV 82.2 fL (80.0-100.0); Mean Platelet Volume 8.9; Monocytes # (A) 0.4 k/uL (0-1.0); Monocytes % (A) 4 %; Neutrophils # (A) 5.7 k/uL (1.3-7.7); Neutrophils % (A) 61 %; Platelet Count 306 k/uL (150-450); RBC 3.26 m/uL (3.80-5.40); RDW 14.7 % (11.5-15.5); WBC 9.3 k/uL (3.8-10.6)
[2022-09-19 01:48] LABS: ALT 56 U/L (4-34); AST 43 U/L (14-36); African American GFR (CKD) >90 (>60 ml/min/1.73 sqM); Albumin 3.5 g/dL (3.5-5.0); Alkaline Phosphatase 170 U/L (38-126); Anion Gap 8 mmol/L; Blood Urea Nitrogen 20 mg/dL (7-17); Calcium 8.9 mg/dL (8.4-10.2); Carbon Dioxide 23 mmol/L (22-30); Chloride 106 mmol/L (98-107); Glucose 95 mg/dL (74-99); Magnesium 1.9 mg/dL (1.6-2.3); Non-African American GFR(CKD) >90 (>60 ml/min/1.73 sqM); Partial Thromboplastin Time 22.9 sec (22.0-30.0); Potassium 4.1 mmol/L (3.5-5.1); Prothrombin Time 10.5 sec (9.0-12.0); Sodium 137 mmol/L (137-145); Total Bilirubin 0.3 mg/dL (0.2-1.3); Total Protein 6.3 g/dL (6.3-8.2)
--- NOTE | 2022-09-19 02:04 | XR ---
EXAMINATION TYPE: XR chest 2V DATE OF EXAM: 09/19/2022 COMPARISON: 05/14/2016 HISTORY: Wrist pain TECHNIQUE: 2 views FINDINGS: Heart and mediastinum are normal. There is small linear density lateral left lung base. The re are no hilar masses. No pleural effusion. Bony thorax is intact. IMPRESSION: Minimal subsegmental atelectasis left lower lobe. Normal heart.
[2022-09-19] MEDS ORDERED: NALOXONE 0.4 MG/ML 1 ML VIAL IV PRN (02:56)
[2022-09-19] MEDS ORDERED: MAGNESIUM SULFATE-WATER PMX 4 GM in WATER FOR INJECTION 1 100ML.BAG IVPB ONE (03:00)
[2022-09-19] MEDS ORDERED: hydrALAZINE HCL 20 MG/ML 1 ML VIAL IVP PRN ×4 (03:01→05:56)
[2022-09-19] MEDS ORDERED: LABETALOL 5 MG/ML VIAL MDV IVP PRN ×7 (03:01→05:56)
--- NOTE | 2022-09-19 03:03 | CT ---
EXAMINATION TYPE: CT angio chest DATE OF EXAM: 09/19/2022 COMPARISON: None HISTORY: elevated d dimer, pt had c section 10 days ago, edema in rt leg, sob CT DLP: 425.2 mGycm Automated exposure control for dose reduction was used. CONTRAST: Performed with IV Contrast, patient injected with 77 mL of Isovue 370. Images obtained from the diaphragm to the thoracic inlet with the IV contrast. There are Three-D post processed images. Heart is borderline enlarged. There is mild subsegmental atelectasis at the posterior lung bases. No pulmonary consolidation. No pleural effusion. No pericardial effusion. There is no mediastinal adenopathy. There are no hilar masses. The thoracic spine is intact. No compression fracture. Sternum is intact There is normal contrast opacification of the pulmonary arteries. No filling defect. Thoracic aorta i s intact. No aneurysm or dissection. IMPRESSION: No evidence of pulmonary embolism. Mild subsegmental atelectasis in the posterior lung bases. Borderl ine cardiomegaly.
[2022-09-19] MEDS ORDERED: CALCIUM GLUCONATE 1 GM/10 ML VIAL IV PRN (03:04)
[2022-09-19] MEDS: SODIUM CHLORIDE 0.9% 1,000 ML IV SCH (03:06)
[2022-09-19] MEDS: MAGNESIUM SULFATE-WATER PMX 20 GM in WATER FOR INJECTION 1 500ML.BAG IV SCH ×2 (03:53→15:13)
[2022-09-19 04:01] LABS: Appearance,Urine Clear (Clear); Bilirubin,Urine Negative (Negative); Blood,Urine Large (Negative); Color,Urine Light Yellow; Glucose,Urine (UA) Negative (Negative); Ketones,Urine Negative (Negative); Leukocyte Esterase,Urine Moderate (Negative); Mucus,Urine Rare /hpf; Nitrite,Urine Negative (Negative); Protein,Urine Trace (Negative); RBC,Urine 9 /hpf (0-5); Specific Gravity,Urine 1.028 (1.001-1.035); Squamous Epithelial Cell,Urine <1 /hpf (0-4); Urobilinogen,Urine <2.0 mg/dL (<2.0); WBC,Urine 18 /hpf (0-5)
[2022-09-19] MEDS ORDERED: KETOROLAC 15 MG/ML 1 ML VIAL IVP ONE (05:58)
--- NOTE | 2022-09-19 08:46 | P.HPOB ---
History of Present Illness H&P Date: 09/19/22 Chief Complaint: preeclampsia, 10 days The patient is a 27-year-old 4 para 4004 who presented to the ER with increasing chest pain and headache was found to have significantly elevated blood pressures. She is 10 days status post section delivery secondary to prolapsed umbilical cord at which time she also had intraoperative bilateral tubal occlusion with Filshie clips. While in the emergency room, her blood pressures were elevated into the 160s over 90s to 100s. Laboratory workup demonstrated significantly elevated uric acid, LDH with elevated liver function tests. As a result, she is admitted for treatment for preeclampsia. Obstetrical history: 4 para 4004 with 3 term vaginal deliveries and one urgent section for cord prolapse 10 days ago as noted in history of present illness. Method of contraception is tubal ligation performed to 10 days ago. Gynecologic history: Unremarkable with no history of any infections to include STDs. Review of Systems Review of systems is confined to history of present illness. Past Medical History Past Medical History: No Reported History History of Any Multi-Drug Resistant Organisms: None Reported Past Surgical History: Section Additional Past Surgical History / Comment(s): 09/09/2022 Past Anesthesia/Blood Transfusion Reactions: No Reported Reaction Past Psychological History: No Psychological Hx Reported Smoking Status: Never smoker Past Alcohol Use History: None Reported Past Drug Use History: None Reported - Past Family History Mother Family Medical History: No Reported History Medications and Allergies Home Medications Medication Instructions Recorded Confirmed Type No Known Home Medications 09/09/22 09/19/22 History Allergies Allergy/AdvReac Type Severity Reaction Status Date / Time No Known Allergies Allergy Verified 09/19/22 00:19 Exam Vital Signs Temp Pulse Pulse Resp BP BP Pulse Ox 09/19/22 07:56 97.8 F 91 16 148/67 97 09/19/22 07:46 91 09/19/22 07:34 116/64 09/19/22 06:39 65 16 139/85 09/19/22 06:34 60 16 160/92 09/19/22 06:30 60 16 09/19/22 05:34 98.2 F 56 L 16 165/105 09/19/22 05:01 54 L 16 09/19/22 04:34 98.2 F 55 L 16 147/90 100 09/19/22 04:05 52 L 18 170/92 97 09/19/22 02:48 49 L 20 149/75 96 09/19/22 02:32 51 L 16 179/101 97 09/19/22 02:04 66 16 161/99 99 09/19/22 00:09 98.8 F 103 H 22 173/103 99 Intake and Output 09/18/22 09/19/22 09/19/22 22:59 06:59 14:59 Intake Total 250 125 Output Total 500 100 Balance -250 25 Intake: IV 250 125 Magnesium Sulfate-Water 100 50 Pmx 20 gm In Water For Injection 1 500ml.bag @ 2 GM/HR 50 mls/hr IV .Q10H [facility] Rx#:[id number] Sodium Chloride 0.9% 1, 150 75 000 ml @ 75 mls/hr IV . [id number] [facility] Rx#:[id number] Output: Urine 500 100 Uretheral (Cardoso) 350 50 Other: Voiding Method Indwelling Catheter Indwelling Catheter Weight 95.254 kg General, this is a well-developed, mild to moderately obese white female in no acute distress. Her heart has a regular rhythm and rate without murmur. Her lungs are clear to auscultation bilaterally in all fagan. Her abdomen is mild to moderately obese, nondistended, has normal active bowel sounds, is soft, nontender, without any palpable masses aside from uterine fundus at or below the umbilicus which is appropriate tender. The abdominal incision is healing well. Her extremities without cyanosis or clubbing and have minimal bilateral lower extremity edema. Results Result Diagrams: 09/19/22 01:00 09/19/22 01:00 Abnormal Lab Results - Last 24 Hours (Table) 09/19/22 09/19/22 09/19/22 Range/Units 01:00 01:00 01:00 RBC 3.26 L (3.80-5.40) m/uL Hgb 8.8 L (11.4-16.0) gm/dL Hct 26.8 L (34.0-46.0) % D-Dimer 8.75 H (<0.60) mg/L FEU BUN 20 H (7-17) mg/dL Uric Acid (3.7-7.4) mg/dL AST 43 H (14-36) U/L ALT 56 H (4-34) U/L Alkaline Phosphatase 170 H (38-126) U/L Lactate Dehydrogenase (313-618) U/L Urine Protein (Negative) Urine Blood (Negative) Ur Leukocyte Esterase (Negative) Urine RBC (0-5) /hpf Urine WBC (0-5) /hpf Urine Mucus (None) /hpf 09/19/22 09/19/22 Range/Units 01:00 02:46 RBC (3.80-5.40) m/uL Hgb (11.4-16.0) gm/dL Hct (34.0-46.0) % D-Dimer (<0.60) mg/L FEU BUN (7-17) mg/dL Uric Acid 8.0 H (3.7-7.4) mg/dL AST (14-36) U/L ALT (4-34) U/L Alkaline Phosphatase (38-126) U/L Lactate Dehydrogenase 685 H (313-618) U/L Urine Protein Trace H (Negative) Urine Blood Large H (Negative) Ur Leukocyte Esterase Moderate H (Negative) Urine RBC 9 H (0-5) /hpf Urine WBC 18 H (0-5) /hpf Urine Mucus Rare H (None) /hpf Assessment and Plan (1) Preeclampsia Current Visit: Yes Status: Acute Code(s): O14.90 - UNSPECIFIED PRE- ECLAMPSIA, UNSPECIFIED TRIMESTER SNOMED Code(s): 145788177 (2) S/P section Current Visit: No Status: Acute Code(s): Z98.891 - HISTORY OF UTERINE SCAR FROM PREVIOUS SURGERY SNOMED Code(s): 628015825 Plan: The patient has been admitted and started on IV magnesium sulfate with a bolus of 4 g followed by 2 g per hour. She will have close monitoring of intake and output. She has required IV labetalol to control her blood pressures and will be started now on oral labetalol to begin at 100 mg twice daily. Magnesium will be continued for 24 hours at which time it will be turned off and we will observe her blood pressures and treat as appropriate. She otherwise can have a regular diet and a catheter is in place to monitor urine output.
[2022-09-19] MEDS ORDERED: LABETALOL 100 MG TAB PO SCH (09:00)
[2022-09-19] MEDS: IBUPROFEN 600 MG TAB PO PRN ×2 (09:17→15:12)
[2022-09-19] MEDS: LABETALOL 100 MG TAB PO SCH ×2 (17:00→22:10)
[2022-09-19] MEDS: ACETAMINOPHEN TAB 500 MG TAB PO PRN (19:52)
[2022-09-20] MEDS: MAGNESIUM SULFATE-WATER PMX 20 GM in WATER FOR INJECTION 1 500ML.BAG IV SCH ×2 (03:21→22:56)
[2022-09-20] MEDS: IBUPROFEN 600 MG TAB PO PRN (03:27)
[2022-09-20] MEDS: SODIUM CHLORIDE 0.9% 1,000 ML IV SCH ×2 (03:27→20:50)
[2022-09-20] MEDS: LABETALOL 100 MG TAB PO SCH ×2 (09:08→16:02)
--- NOTE | 2022-09-20 09:49 | P.PN ---
Subjective Progress Note Date: 09/20/22 Principal diagnosis: 10 days post , preeclampsia Magnesium sulfate was stopped this morning and the patient reports feeling significantly better. She has no ongoing issues of pain and her headache has resolved. Objective - Vital Signs Vital signs: Vital Signs Temp 98.3 F 09/20/22 08:00 Pulse 64 09/20/22 08:00 Resp 16 09/20/22 08:00 BP 160/83 09/20/22 08:00 Pulse Ox 97 09/20/22 08:00 FiO2 Intake & Output 09/19/22 09/20/22 09/20/22 18:59 06:59 18:59 Intake Total 2305 1300 100 Output Total 2850 2150 600 Balance -545 -850 -500 Weight 96.3 kg Intake: IV 1225 900 50 Magnesium Sulfate-Water 600 450 Pmx 20 gm In Water For Injection 1 500ml.bag @ 2 GM/HR 50 mls/hr IV .Q10H [facility] Rx#:[id number] Sodium Chloride 0.9% 1, 625 450 50 000 ml @ 75 mls/hr IV . [id number] [facility] Rx#:[id number] Intake, IV Titration 500 Amount Magnesium Sulfate-Water 500 Pmx 20 gm In Water For Injection 1 500ml.bag @ 2 GM/HR 50 mls/hr IV .Q10H [facility] Rx#:[id number] Oral 580 400 50 Output: Urine 2850 2150 600 Uretheral (Cardoso) 50 300 Other: Voiding Method Indwelling Catheter Indwelling Catheter - Exam General, this is a well-developed, well-nourished white female in no acute distress. Her parents is less puffy than yesterday. Her abdomen is nondistended, has normal active bowel sounds, soft, with appropriate postoperative tenderness. The uterine fundus is tonic an appropriate tender below the umbilicus. The incision is clean, dry, and intact. Her extremities are without any cyanosis, clubbing, or significant edema. - Labs CBC & Chem 7: 09/19/22 01:00 09/19/22 01:00 Labs: Microbiology - Last 24 Hours (Table) 09/19/22 02:46 Urine Culture - Final Urine,Voided Assessment and Plan (1) Preeclampsia Current Visit: Yes Status: Acute Code(s): O14.90 - UNSPECIFIED PRE- ECLAMPSIA, UNSPECIFIED TRIMESTER SNOMED Code(s): 396744971 (2) S/P section Current Visit: No Status: Acute Code(s): Z98.891 - HISTORY OF UTERINE SCAR FROM PREVIOUS SURGERY SNOMED Code(s): 733570324 Plan: Blood pressures yesterday remained labile despite starting labetalol 100 mg twice daily as a result, a third dose was added to bridge the gap so that she is now on labetalol 100 mg 3 times a day. Blood pressures appear to be controlled to this point, but the magnesium has only been removed as of early this morning. She will have today for observation regarding her blood pressures and, assuming no significant changes, likely be discharged home tomorrow to follow-up in the office in 1-2 weeks for both blood pressure check and incision check. She is due for incision check next week but we have agreed to push it forward to the following week in order to include evaluation of blood pressure concerns. Postsurgically, the patient is doing well and is quite stable.
[2022-09-20] MEDS: ACETAMINOPHEN TAB 500 MG TAB PO PRN (16:03)
[2022-09-20] MEDS: LABETALOL 200 MG TAB PO SCH (20:14)
[2022-09-21] MEDS: LABETALOL 200 MG TAB PO SCH ×4 (08:39→23:47)
--- NOTE | 2022-09-21 10:16 | P.PN ---
Subjective Progress Note Date: 09/21/22 Principal diagnosis: preeclampsia 27-year-old status post section a proximally 11 days ago, patient was admitted for preeclampsia. Patient is status post magnesium gtt for 24 hours and this was discontinued yesterday am. she states she is feeling much improved since admission. She denies any symptoms of pre eclampsia she has had noted elevated BP overnight and this am 160-170/90-100's. She is currently on labetalol 200mg tid. she is tearful and desirous of discharge as she states her and her boyfriend have 5 children at home. Objective - Vital Signs Vital signs: Vital Signs Temp 98.1 F 09/21/22 08:01 Pulse 81 09/21/22 08:01 Resp 16 09/21/22 08:01 BP 168/98 09/21/22 08:01 Pulse Ox 99 09/21/22 04:55 FiO2 Intake & Output 09/20/22 09/21/22 09/21/22 18:59 06:59 18:59 Intake Total 700 Output Total 1050 Balance -350 Weight 95 kg Intake: IV 50 Sodium Chloride 0.9% 1, 50 000 ml @ 75 mls/hr IV . [id number] [facility] Rx#:[id number] Oral 650 Output: Urine 1050 Uretheral (Cardoso) 300 Other: # Voids 2 1 - Constitutional General appearance: Present: average body habitus, cooperative, no acute distress - Respiratory Respiratory: bilateral: CTA - Cardiovascular Rhythm: regular - Labs CBC & Chem 7: 09/19/22 01:00 09/19/22 01:00 Labs: Microbiology - Last 24 Hours (Table) 09/19/22 02:46 Urine Culture - Final Urine,Voided Assessment and Plan (1) Preeclampsia Current Visit: Yes Status: Acute Code(s): O14.90 - UNSPECIFIED PRE- ECLAMPSIA, UNSPECIFIED TRIMESTER SNOMED Code(s): 869260633 (2) S/P section Current Visit: No Status: Acute Code(s): Z98.891 - HISTORY OF UTERINE SCAR FROM PREVIOUS SURGERY SNOMED Code(s): 045243698 Plan: This is a 27 you 10 s/p RCS readmitted for preeclampsia. Initial preeclampsia labs with noted elevated liver function tests we will repeat this morning. We will increase labetalol to 400 mg twice daily with continued close surveillance of blood pressures. Although frustrated patient does understand plan of care. If blood pressures stabilize we'll plan discharge home tomorrow.
[2022-09-21 10:58] LABS: Basophils % (A) 0 %; Eosinophils # (A) 0.2 k/uL (0-0.7); Eosinophils % (A) 2 %; HCT 29.5 % (34.0-46.0); HGB 9.7 gm/dL (11.4-16.0); Hypochromasia Slight; Lymphocytes # (A) 2.2 k/uL (1.0-4.8); Lymphocytes % (A) 24 %; MCH 27.4 pg (25.0-35.0); MCHC 32.9 g/dL (31.0-37.0); MCV 83.3 fL (80.0-100.0); Mean Platelet Volume 9.2; Monocytes # (A) 0.3 k/uL (0-1.0); Monocytes % (A) 3 %; Neutrophils # (A) 6.5 k/uL (1.3-7.7); Neutrophils % (A) 69 %; Platelet Count 279 k/uL (150-450); RBC 3.54 m/uL (3.80-5.40); RDW 14.8 % (11.5-15.5); WBC 9.4 k/uL (3.8-10.6)
[2022-09-21] MEDS ORDERED: hydrALAZINE HCL 25 MG TAB PO STA (18:12)
[2022-09-21] MEDS: HYDROcodone/APAP 5-325MG 1 EACH TAB PO PRN (18:23)
--- NOTE | 2022-09-21 19:00 | P.CONS ---
History of Present Illness - Reason for Consult Consult date: 09/21/22 HTN Requesting physician: Piedad Ordaz - Chief Complaint HERNANDEZ and chest pain - History of Present Illness Patient is a 27-year-old 4 para 4004 who presented to the ER due to chest pain and headache. She was subsequently found to have elevated blood pressures. Patient had undergone a on 09/09/22 and was therefore readmitted to [facility] due to preeclampsia. She was admitted to OB and 09/19. She was started on magnesium sulfate 4 g and then 2 g/h. She did require IV labetalol and was started on oral labetalol, her orally all was uptitrated on and the patient continued to have elevated blood pressures we were consulted for blood pressure management. Patient seen and examined at bedside. She presented to the hospital with chest pain and headache which have both resolved. She conitnues to have some lower abdominal pain at the site of her . She denies and shortness of breath, lightheadedness, dizziness, weakness, numbness/tingling. She did have some nausea with the magnesium drip but that has been getting better. She denies any hx of preeclampsia/eclampsia with this or her previous pregnancies, she deneis any preexisting hypertesion. Her 1/2 sister did have preeclampsia with her second . Her mother has hypertesion and is treated with medications. She denies a family hx of coronary artery disease, CHD, or CHF. Vital signs reviewed General: nontoxic, no distress, appears at stated age Eyes: EOMI, no lid lag, anicteric sclera, pupils equal round reactive to light ENT: Nose and ears atraumatic, no thrush, no pharyngeal erythema Cardiovascular: S1S2 reg, no murmur, positive posterior tibial pulse bilateral, + delayed pulse right arm, trace edema Lungs: clear to auscultation bilateral, no rhonchi, no rales, no wheeze, no accessory muscle use Abdominal: soft, + tender to palpation R and L LQ, no guarding, no appreciable organomegaly, normal bowel sounds Ext: no gross muscle atrophy, no contractures Neuro: CN II-XII grossly intact, light touch intact all 4 extremities, finger to nose within normal limits, Psych: Alert, oriented, appropriate affect Assessment: Preeclampsia with elevated blood pressures, discrepancy in blood pressure between arms, delayed Acute blood loss anemia, anticipated outcome Obesity with BMI 39.6 Plan: - continue with labetalol 400 mg TID and add hydralazine 25 mg stat PO, recheck BP in 1 hour and can redose hydralazine if needed - stop NSAID and these can increase fludi retention and rasie the risk of cardiovascular events, start norco 5/325 mg QID as need for pain with pain target of 1-2 in the setting of preeclampsia. - if BP remains uncontrolled after addition of hydralazine then would recommend echo to evaluation of cardiomyopathy - if delayed pulses and unequal BP continue will need evaluation for subclavian steal syndrome - Nurse will contact me in 1 hour with updated BP. - Case discussed wtih Dr. Ordaz. - in AM recheck CBC to ensure HgB stability, BMP with recent contrast exposure, check BNP now and in AM Imaging: Chest b-vax-[id number] atelectasis left lower lobe Venous Doppler-no DVT in the right leg No evidence of pulmonary embolism, mild subsegmental atelectasis in posterior lung bases, borderline cardiomegaly. Borderline Cardiomegally Data Review: Blood pressure is reviewed from last 24 hours maximum blood pressure has been 179/95. Lowest blood pressure according has been 156/90. Patient has been borderline bradycardic with heart rate of 54 at rest. Laboratory analysis reviewed from this morning. Hemoglobin 9.7 (up from 8.8), BUN 10, uric acid 7, ALT 40, LDH 370. Thank you for allowing us to participate in the care of this pleasant patient. Do not hesitate to contact us with questions. Someone can be reached from the [facility] hospitalist group all hours of the day at [phone] or via [employer]. This dictation was prepared using [employer] voice recognition software. Though every attempt is made to correct errors during during dictation some may still exist. Past Medical History Past Medical History: No Reported History History of Any Multi-Drug Resistant Organisms: None Reported Past Surgical History: Section Additional Past Surgical History / Comment(s): 09/09/2022 Past Anesthesia/Blood Transfusion Reactions: No Reported Reaction Past Psychological History: No Psychological Hx Reported Smoking Status: Never smoker Past Alcohol Use History: None Reported Past Drug Use History: None Reported - Past Family History Mother Family Medical History: No Reported History Medications and Allergies Home Medications Medication Instructions Recorded Confirmed Type No Known Home Medications 09/09/22 09/19/22 History Allergies Allergy/AdvReac Type Severity Reaction Status Date / Time No Known Allergies Allergy Verified 09/19/22 00:19 Physical Exam Osteopathic Statement: *. No significant issues noted on an osteopathic structural exam other than those noted in the History and Physical/Consult. Vitals: Vital Signs Temp Pulse Resp BP Pulse Ox 09/21/22 14:13 54 L 156/90 09/21/22 09:50 179/95 09/21/22 08:01 98.1 F 81 16 168/98 09/21/22 04:55 98.0 F 58 L 16 173/97 99 09/21/22 01:17 172/84 09/21/22 00:00 97.9 F 63 16 163/52 98 09/20/22 20:00 98.4 F 68 16 167/91 97 Intake and Output 09/21/22 09/21/22 09/21/22 06:59 14:59 22:59 Other: # Voids 1 1 Weight 95 kg Results CBC & Chem 7: 09/21/22 10:38 09/21/22 10:38 Labs: Abnormal Lab Results - Last 24 Hours (Table) 09/21/22 09/21/22 Range/Units 10:38 10:38 RBC 3.54 L (3.80-5.40) m/uL Hgb 9.7 L (11.4-16.0) gm/dL Hct 29.5 L (34.0-46.0) % ALT 40 H (4-34) U/L Lactate Dehydrogenase 370 H (120-246) U/L
[2022-09-21] MEDS: lisinopriL 10 MG TAB PO SCH (21:01)
[2022-09-21] MEDS ORDERED: hydrALAZINE HCL 25 MG TAB PO SCH (22:00)
[2022-09-22] MEDS ORDERED: hydrALAZINE HCL 25 MG TAB PO STA ×3 (05:14→10:31)
[2022-09-22 06:11] LABS: HCT 30.2 % (34.0-46.0); HGB 9.6 gm/dL (11.4-16.0); Hypochromasia Slight; MCH 26.4 pg (25.0-35.0); MCHC 31.8 g/dL (31.0-37.0); Mean Platelet Volume 8.7; Platelet Count 284 k/uL (150-450); RBC 3.64 m/uL (3.80-5.40); RDW 14.8 % (11.5-15.5)
[2022-09-22 07:35] LABS: ALT 35 U/L (4-34); AST 26 U/L (14-36); African American GFR (CKD) >90 (>60 ml/min/1.73 sqM); Albumin 3.4 g/dL (3.5-5.0); Alkaline Phosphatase 131 U/L (38-126); Anion Gap 6 mmol/L; Blood Urea Nitrogen 15 mg/dL (7-17); Calcium 9.5 mg/dL (8.4-10.2); Carbon Dioxide 24 mmol/L (22-30); Chloride 107 mmol/L (98-107); Glucose 83 mg/dL (74-99); Non-African American GFR(CKD) >90 (>60 ml/min/1.73 sqM); Potassium 4.6 mmol/L (3.5-5.1); Sodium 137 mmol/L (137-145); Total Bilirubin 0.3 mg/dL (0.2-1.3); Total Protein 6.1 g/dL (6.3-8.2)
[2022-09-22] MEDS: LABETALOL 200 MG TAB PO SCH ×3 (08:11→22:23)
[2022-09-22] MEDS ORDERED: hydrALAZINE HCL 25 MG TAB PO SCH ×2 (09:00→16:00)
[2022-09-22] MEDS ORDERED: FUROSEMIDE 10 MG/ML 2 ML VIAL IV ONE (10:37)
--- NOTE | 2022-09-22 10:43 | P.PN ---
Subjective Progress Note Date: 09/22/22 Principal diagnosis: 10 days post , preeclampsia the patient continues to feel significantly better than on admission. She denies any ongoing headache and does have some anxiety regarding remaining in the hospital. She is otherwise reporting normal activities of daily living. Objective - Vital Signs Vital signs: Vital Signs Temp 98.3 F 09/22/22 08:24 Pulse 76 09/22/22 08:24 Resp 15 09/22/22 08:24 BP 174/96 09/22/22 09:58 Pulse Ox 97 09/22/22 08:24 FiO2 Intake & Output 09/21/22 09/22/22 09/22/22 18:59 06:59 18:59 Intake Total 300 Balance 300 Weight 91.4 kg Intake: Oral 300 Other: # Voids 3 1 - Exam in general this is a well-developed, mildly obese white female in no acute dis tress though she is somewhat tearful and reports anxiety. Her abdomen is soft, nondistended with uterine fundus tonic and appropriate tender below the umbilicus. Her incision is clean, dry, and intact. Her extremities without any cyanosis, clubbing, or edema and are nontender to palpation bilaterally. - Labs CBC & Chem 7: 09/22/22 05:54 09/22/22 05:54 Labs: Abnormal Lab Results - Last 24 Hours (Table) 09/21/22 09/21/22 09/22/22 Range/Units 10:38 10:38 05:54 RBC 3.54 L 3.64 L (3.80-5.40) m/uL Hgb 9.7 L 9.6 L (11.4-16.0) gm/dL Hct 29.5 L 30.2 L (34.0-46.0) % ALT 40 H (4-34) U/L Alkaline Phosphatase (38-126) U/L Lactate Dehydrogenase 370 H (120-246) U/L Total Protein (6.3-8.2) g/dL Albumin (3.5-5.0) g/dL 09/22/22 Range/Units 05:54 RBC (3.80-5.40) m/uL Hgb (11.4-16.0) gm/dL Hct (34.0-46.0) % ALT 35 H (4-34) U/L Alkaline Phosphatase 131 H (38-126) U/L Lactate Dehydrogenase (120-246) U/L Total Protein 6.1 L (6.3-8.2) g/dL Albumin 3.4 L (3.5-5.0) g/dL Assessment and Plan (1) Preeclampsia Current Visit: Yes Status: Acute Code(s): O14.90 - UNSPECIFIED PRE- ECLAMPSIA, UNSPECIFIED TRIMESTER SNOMED Code(s): 469797419 (2) S/P section Current Visit: No Status: Acute Code(s): Z98.891 - HISTORY OF UTERINE SCAR FROM PREVIOUS SURGERY SNOMED Code(s): 890867594 Plan: I greatly appreciate consultation with internal medicine yesterday. I further discussed the case with Dr. Adamson and we both feel that the patient deserves a more thorough workup for unusual causes of resistant hypertension. These might include subclinical pulmonary embolism, cardiomyopathy, or possibly even a renal origin. Blood pressures remained relatively high despite the addition of 3 separate antihypertensives all with different mechanisms of action. I have discussed with the patient that we need to find an answer before she can and should be released for safety. Internal medicine will continue to be the driving force behind her further care. I would anticipate cardiology consultation and probable echocardiography in the morning. I also offered the patient medications for anxiety to include both Zoloft and possibly short-term Xanax which she is currently declined.
--- NOTE | 2022-09-22 11:04 | P.PN ---
Subjective Progress Note Date: 09/22/22 Patient is a 27-year-old 4 para 4004 who presented to the ER due to chest pain and headache. She was subsequently found to have elevated blood pressures. Patient had undergone a on 09/09/22 and was therefore readmitted to [facility] due to preeclampsia. She was admitted to OB and 09/19. She was started on magnesium sulfate 4 g and then 2 g/h. She did require IV labetalol and was started on oral labetalol, her orally all was uptitrated on the and the patient continued to have elevated blood pressures we were consulted for blood pressure management. Patient seen and examined at bedside. She denies chest pain, HERNANDEZ, and shortness of breath. She is feeling somewhat anxious but does not want to take medications at this time. She has no other complaints at this time and denies any significant pain from her . Vital signs reviewed General: nontoxic, no distress, appears at stated age Cardiovascular: S1S2 reg, no murmur, positive posterior tibial pulse bilateral, Lungs: CTA bilateral, no rhonchi, no rales , no accessory muscle use Abdominal: soft, nontender to palpation, no guarding, no appreciable organomegaly Ext: no gross muscle atrophy, no edema, no contractures Neuro: CN II-XI grossly intact, no focal neuro deficits Psych: Alert, oriented, appropriate affect Assessment: Preeclampsia with elevated blood pressures, discrepancy in blood pressure between arms Acute blood loss anemia, anticipated outcome Obesity with BMI 39.6 Imaging: none Data Review: BNP from 318 on 319 within normal limits, troponin negative at less than 0.012, hemoglobin stable at 9.6, BUN 15, creatinine 0.78. Liver enzymes improving with ALT 35 and AST 26 Plan: - case discussed with Dr. Richards we decided that given need for 3 blood pressure medications cardio consult is warranted.Called Dr. Hassan and updated him on current situation, Lasix 20 mg IVP ordered. Patient will remain on FBP where nursing is aware of the complications of preeclampsia. They have been doing a fabulous job with monitoring BP and giving medications appropriately. - Hydrazine increase to targe SBP <150. Ordered 25 mg stat X 2 and increased dose to 75 mg TID, may need to be QID - Continue with labetaolol 400 mg TIB and Lisinopril 10 mg at night- whcih can be increased if needed - if 3 meds become maxed out may need to consider work-up for secondary causes of HTN, but this appears likely related to preeclampsia - Low likelihood of peripartum cardiomyopathy given normal BNP and no clinical signs of fluid overload. Thank you for allowing us to participate in the care of this pleasant patient. Do not hesitate to contact us with questions. Someone can be reached from the [facility] hospitalist group all hours of the day at [phone] or via [employer]. This dictation was prepared using [employer] voice recognition software. Though every attempt is made to correct errors during during dictation some may still exist. Objective - Vital Signs Vital signs: Vital Signs Temp 98.3 F 09/22/22 08:24 Pulse 76 09/22/22 08:24 Resp 15 09/22/22 08:24 BP 174/96 09/22/22 09:58 Pulse Ox 97 09/22/22 08:24 FiO2 Intake & Output 09/21/22 09/22/22 09/22/22 18:59 06:59 18:59 Intake Total 300 Balance 300 Weight 91.4 kg Intake: Oral 300 Other: # Voids 3 1 - Labs CBC & Chem 7: 09/22/22 05:54 09/22/22 05:54 Labs: Abnormal Lab Results - Last 24 Hours (Table) 09/21/22 09/22/22 09/22/22 Range/Units 10:38 05:54 05:54 RBC 3.64 L (3.80-5.40) m/uL Hgb 9.6 L (11.4-16.0) gm/dL Hct 30.2 L (34.0-46.0) % ALT 40 H 35 H (4-34) U/L Alkaline Phosphatase 131 H (38-126) U/L Lactate Dehydrogenase 370 H (120-246) U/L Total Protein 6.1 L (6.3-8.2) g/dL Albumin 3.4 L (3.5-5.0) g/dL
[2022-09-22 13:01] VITALS: RESP 16
[2022-09-22] MEDS: HYDROcodone/APAP 5-325MG 1 EACH TAB PO PRN (13:56)
[2022-09-22] MEDS ORDERED: hydrALAZINE HCL 50 MG TAB PO SCH (16:00)
--- NOTE | 2022-09-22 16:13 | P.CRDCN ---
History of Present Illness History of present illness: HISTORY OF PRESENTING ILLNESS Patient is a pleasant 27-year-old female without significant medical problems who presented secondary to left lower extremity swelling and some mild chest pain. She was admitted 3/ and had a which was uneventful. Patient was concerned that she may have had a blood clot and therefore presented to emergency department. Lower extremity venous ultrasound showed no blood clot. She was additionally having chest pain and CTA showed no PE with some atelectasis and no other significant findings. She denies any fevers or chills or cough. She is found to be hypertensive blood pressures in the 170s to 180s systolic. She was given labetalol. Additionally she was started on lisinopril as well as hydralazine. She is not breast-feeding. She was given magnesium sulfate infusion with improvement of any chest pain. Troponin normal 2, proBNP 314, AST 43, ALT 56, alk phos 170, LDH 685, urinalysis with trace protein, large blood, moderate leukocyte esterase. REVIEW OF SYSTEMS At the time of my exam: CONSTITUTIONAL: Denies fever or chills. CARDIOVASCULAR: +chest pain, no shortness of breath, orthopnea, PND or palpitations. RESPIRATORY: Denies cough. GASTROINTESTINAL: Denies abdominal pain, diarrhea, constipation, nausea or vomiting. MUSCULOSKELETAL: Denies myalgias. NEUROLOGIC: Denies numbness, tingling or weakness. ENDOCRINE: Denies fatigue, weight change, polydipsia or polyurina. GENITOURINARY: Denies burning, hematuria or urgency with micturation. HEMATOLOGIC: Denies history of anemia or bleeding. PHYSICAL EXAMINATION Vital signs reviewed. CONSTITUTIONAL: No apparent distress. HEENT: Head is normocephalic. Pupils are equal, round. Sclerae anicteric. Mucous membranes of the mouth are moist. No JVD. No carotid bruit. CHEST EXAMINATION: Lungs are clear to auscultation. No chest wall tenderness is noted on palpation or with deep breathing. HEART EXAMINATION: Regular rate and rhythm. S1, S2 heard. No murmurs, gallops or rub. ABDOMEN: Soft, nontender. Positive bowel sounds. EXTREMITIES: 2+ peripheral pulses, no lower extremity edema and no calf tenderness. NEUROLOGIC EXAMINATION: Patient is awake, alert and oriented x3. ASSESSMENT Preeclampsia, presenting approximately 10 days after her , status post 24-hour infusion magnesium. No significant neurologic changes or end organ damage with mild proteinuria noted Hypertension related to above Chest pain improved Anemia PLAN Patient is not breast-feeding. We will continue with labetalol, lisinopril, as needed hydralazine. Additionally she was given Lasix with some improvement in blood pressure and may be somewhat salt sensitive. Check 2-D echo for completeness sake to evaluate left ventricular ejection fraction. If blood pressure remains controlled tomorrow, hopeful discharge. Further recommendations to follow. Past Medical History Past Medical History: No Reported History History of Any Multi-Drug Resistant Organisms: None Reported Past Surgical History: Section Additional Past Surgical History / Comment(s): 09/09/2022 Past Anesthesia/Blood Transfusion Reactions: No Reported Reaction Past Psychological History: No Psychological Hx Reported Smoking Status: Never smoker Past Alcohol Use History: None Reported Past Drug Use History: None Reported - Past Family History Mother Family Medical History: No Reported History Medications and Allergies Home Medications Medication Instructions Recorded Confirmed Type No Known Home Medications 09/09/22 09/19/22 History Allergies Allergy/AdvReac Type Severity Reaction Status Date / Time No Known Allergies Allergy Verified 09/19/22 00:19 Physical Exam Vitals: Vital Signs Temp Pulse Resp BP BP Pulse Ox 09/22/22 15:49 97.8 F 80 16 125/75 96 09/22/22 12:59 98.1 F 79 16 97/63 96 09/22/22 11:04 140/74 09/22/22 09:58 174/96 09/22/22 08:24 98.3 F 76 15 166/100 181/93 97 09/22/22 05:25 172/81 09/22/22 04:00 97.6 F 77 14 155/91 98 09/22/22 01:45 165/81 09/21/22 23:51 97.8 F 56 L 16 176/90 96 09/21/22 21:00 144/76 09/21/22 20:00 98.4 F 77 16 97 09/21/22 19:30 160/91 166/82 09/21/22 18:00 80 16 198/119 09/21/22 17:00 82 16 156/102 175/105 Intake and Output 09/22/22 09/22/22 09/22/22 06:59 14:59 22:59 Intake Total 300 Output Total 1500 Balance -1200 Intake: Oral 300 Output: Urine 1500 Other: # Voids 1 4 Weight 91.4 kg Results 09/22/22 05:54 09/22/22 05:54 Cardiac Enzymes 09/19/22 09/19/22 09/19/22 Range/Units 01:00 01:00 01:00 WBC 9.3 (3.8-10.6) k/uL RBC 3.26 L (3.80-5.40) m/uL Hgb 8.8 L (11.4-16.0) gm/dL Hct 26.8 L (34.0-46.0) % MCV 82.2 (80.0-100.0) fL MCH 27.0 (25.0-35.0) pg MCHC 32.8 (31.0-37.0) g/dL RDW 14.7 (11.5-15.5) % Plt Count 306 (150-450) k/uL MPV 8.9 Neutrophils % 61 % Lymphocytes % 32 % Monocytes % 4 % Eosinophils % 1 % Basophils % 0 % Neutrophils # 5.7 (1.3-7.7) k/uL Lymphocytes # 2.9 (1.0-4.8) k/uL Monocytes # 0.4 (0-1.0) k/uL Eosinophils # 0.1 (0-0.7) k/uL Basophils # 0.0 (0-0.2) k/uL Hypochromasia PT 10.5 (9.0-12.0) sec INR 1.0 (<1.2) APTT 22.9 (22.0-30.0) sec Fibrinogen (200-500) mg/dL D-Dimer 8.75 H (<0.60) mg/L FEU Sodium 137 (137-145) mmol/L Potassium 4.1 (3.5-5.1) mmol/L Chloride 106 (98-107) mmol/L Carbon Dioxide 23 (22-30) mmol/L Anion Gap 8 mmol/L BUN 20 H (7-17) mg/dL Creatinine 0.63 (0.52-1.04) mg/dL Est GFR (CKD-EPI)AfAm >90 (>60 ml/min/1.73 sqM) Est GFR (CKD-EPI)NonAf >90 (>60 ml/min/1.73 sqM) Glucose 95 (74-99) mg/dL Uric Acid (3.7-7.4) mg/dL Calcium 8.9 (8.4-10.2) mg/dL Magnesium 1.9 (1.6-2.3) mg/dL Total Bilirubin 0.3 (0.2-1.3) mg/dL AST (14-36) U/L ALT 56 H (4-34) U/L Alkaline Phosphatase 170 H (38-126) U/L Troponin I (0.000-0.034) ng/mL NT-Pro-B Natriuret Pep pg/mL Total Protein 6.3 (6.3-8.2) g/dL Albumin 3.5 (3.5-5.0) g/dL Urine Color Urine Appearance (Clear) Urine pH (5.0-8.0) Ur Specific Disputanta (1.001-1.035) Urine Protein (Negative) Urine Glucose (UA) (Negative) Urine Ketones (Negative) Urine Blood (Negative) Urine Nitrite (Negative) Urine Bilirubin (Negative) Urine Urobilinogen (<2.0) mg/dL Ur Leukocyte Esterase (Negative) Urine RBC (0-5) /hpf Urine WBC (0-5) /hpf Ur Squamous Epith Cells (0-4) /hpf Urine Mucus (None) /hpf 09/19/22 09/19/22 09/21/22 Range/Units 01:00 02:46 10:38 WBC (3.8-10.6) k/uL RBC (3.80-5.40) m/uL Hgb (11.4-16.0) gm/dL Hct (34.0-46.0) % MCV (80.0-100.0) fL MCH (25.0-35.0) pg MCHC (31.0-37.0) g/dL RDW (11.5-15.5) % Plt Count (150-450) k/uL MPV Neutrophils % % Lymphocytes % % Monocytes % % Eosinophils % % Basophils % % Neutrophils # (1.3-7.7) k/uL Lymphocytes # (1.0-4.8) k/uL Monocytes # (0-1.0) k/uL Eosinophils # (0-0.7) k/uL Basophils # (0-0.2) k/uL Hypochromasia PT (9.0-12.0) sec INR (<1.2) APTT (22.0-30.0) sec Fibrinogen (200-500) mg/dL D-Dimer (<0.60) mg/L FEU Sodium (137-145) mmol/L Potassium (3.5-5.1) mmol/L Chloride (98-107) mmol/L Carbon Dioxide (22-30) mmol/L Anion Gap mmol/L BUN 10 (7-17) mg/dL Creatinine (0.52-1.04) mg/dL Est GFR (CKD-EPI)AfAm (>60 ml/min/1.73 sqM) Est GFR (CKD-EPI)NonAf (>60 ml/min/1.73 sqM) Glucose (74-99) mg/dL Uric Acid 8.0 H 7.0 (3.7-7.4) mg/dL Calcium (8.4-10.2) mg/dL Magnesium (1.6-2.3) mg/dL Total Bilirubin (0.2-1.3) mg/dL AST (14-36) U/L ALT 40 H (4-34) U/L Alkaline Phosphatase (38-126) U/L Troponin I (0.000-0.034) ng/mL NT-Pro-B Natriuret Pep pg/mL Total Protein (6.3-8.2) g/dL Albumin (3.5-5.0) g/dL Urine Color Light Yellow Urine Appearance Clear (Clear) Urine pH 6.0 (5.0-8.0) Ur Specific Disputanta 1.028 (1.001-1.035) Urine Protein Trace H (Negative) Urine Glucose (UA) Negative (Negative) Urine Ketones Negative (Negative) Urine Blood Large H (Negative) Urine Nitrite Negative (Negative) Urine Bilirubin Negative (Negative) Urine Urobilinogen <2.0 (<2.0) mg/dL Ur Leukocyte Esterase Moderate H (Negative) Urine RBC 9 H (0-5) /hpf Urine WBC 18 H (0-5) /hpf Ur Squamous Epith Cells <1 (0-4) /hpf Urine Mucus Rare H (None) /hpf 09/21/22 09/21/22 09/21/22 Range/Units 10:38 10:38 19:51 WBC 9.4 (3.8-10.6) k/uL RBC 3.54 L (3.80-5.40) m/uL Hgb 9.7 L (11.4-16.0) gm/dL Hct 29.5 L (34.0-46.0) % MCV 83.3 (80.0-100.0) fL MCH 27.4 (25.0-35.0) pg MCHC 32.9 (31.0-37.0) g/dL RDW 14.8 (11.5-15.5) % Plt Count 279 (150-450) k/uL MPV 9.2 Neutrophils % 69 % Lymphocytes % 24 % Monocytes % 3 % Eosinophils % 2 % Basophils % 0 % Neutrophils # 6.5 (1.3-7.7) k/uL Lymphocytes # 2.2 (1.0-4.8) k/uL Monocytes # 0.3 (0-1.0) k/uL Eosinophils # 0.2 (0-0.7) k/uL Basophils # 0.0 (0-0.2) k/uL Hypochromasia Slight PT (9.0-12.0) sec INR (<1.2) APTT (22.0-30.0) sec Fibrinogen 362 (200-500) mg/dL D-Dimer (<0.60) mg/L FEU Sodium (137-145) mmol/L Potassium (3.5-5.1) mmol/L Chloride (98-107) mmol/L Carbon Dioxide (22-30) mmol/L Anion Gap mmol/L BUN (7-17) mg/dL Creatinine (0.52-1.04) mg/dL Est GFR (CKD-EPI)AfAm (>60 ml/min/1.73 sqM) Est GFR (CKD-EPI)NonAf (>60 ml/min/1.73 sqM) Glucose (74-99) mg/dL Uric Acid (3.7-7.4) mg/dL Calcium (8.4-10.2) mg/dL Magnesium (1.6-2.3) mg/dL Total Bilirubin (0.2-1.3) mg/dL AST (14-36) U/L ALT (4-34) U/L Alkaline Phosphatase (38-126) U/L Troponin I (0.000-0.034) ng/mL NT-Pro-B Natriuret Pep 314 pg/mL Total Protein (6.3-8.2) g/dL Albumin (3.5-5.0) g/dL Urine Color Urine Appearance (Clear) Urine pH (5.0-8.0) Ur Specific Disputanta (1.001-1.035) Urine Protein (Negative) Urine Glucose (UA) (Negative) Urine Ketones (Negative) Urine Blood (Negative) Urine Nitrite (Negative) Urine Bilirubin (Negative) Urine Urobilinogen (<2.0) mg/dL Ur Leukocyte Esterase (Negative) Urine RBC (0-5) /hpf Urine WBC (0-5) /hpf Ur Squamous Epith Cells (0-4) /hpf Urine Mucus (None) /hpf 09/21/22 09/22/22 09/22/22 Range/Units 19:51 05:54 05:54 WBC 9.0 (3.8-10.6) k/uL RBC 3.64 L (3.80-5.40) m/uL Hgb 9.6 L (11.4-16.0) gm/dL Hct 30.2 L (34.0-46.0) % MCV 83.0 (80.0-100.0) fL MCH 26.4 (25.0-35.0) pg MCHC 31.8 (31.0-37.0) g/dL RDW 14.8 (11.5-15.5) % Plt Count 284 (150-450) k/uL MPV 8.7 Neutrophils % % Lymphocytes % % Monocytes % % Eosinophils % % Basophils % % Neutrophils # (1.3-7.7) k/uL Lymphocytes # (1.0-4.8) k/uL Monocytes # (0-1.0) k/uL Eosinophils # (0-0.7) k/uL Basophils # (0-0.2) k/uL Hypochromasia Slight PT (9.0-12.0) sec INR (<1.2) APTT (22.0-30.0) sec Fibrinogen (200-500) mg/dL D-Dimer (<0.60) mg/L FEU Sodium 137 (137-145) mmol/L Potassium 4.6 (3.5-5.1) mmol/L Chloride 107 (98-107) mmol/L Carbon Dioxide 24 (22-30) mmol/L Anion Gap 6 mmol/L BUN 15 (7-17) mg/dL Creatinine 0.78 (0.52-1.04) mg/dL Est GFR (CKD-EPI)AfAm >90 (>60 ml/min/1.73 sqM) Est GFR (CKD-EPI)NonAf >90 (>60 ml/min/1.73 sqM) Glucose 83 (74-99) mg/dL Uric Acid (3.7-7.4) mg/dL Calcium 9.5 (8.4-10.2) mg/dL Magnesium (1.6-2.3) mg/dL Total Bilirubin 0.3 (0.2-1.3) mg/dL AST 26 (14-36) U/L ALT 35 H (4-34) U/L Alkaline Phosphatase 131 H (38-126) U/L Troponin I <0.012 (0.000-0.034) ng/mL NT-Pro-B Natriuret Pep pg/mL Total Protein 6.1 L (6.3-8.2) g/dL Albumin 3.4 L (3.5-5.0) g/dL Urine Color Urine Appearance (Clear) Urine pH (5.0-8.0) Ur Specific Disputanta (1.001-1.035) Urine Protein (Negative) Urine Glucose (UA) (Negative) Urine Ketones (Negative) Urine Blood (Negative) Urine Nitrite (Negative) Urine Bilirubin (Negative) Urine Urobilinogen (<2.0) mg/dL Ur Leukocyte Esterase (Negative) Urine RBC (0-5) /hpf Urine WBC (0-5) /hpf Ur Squamous Epith Cells (0-4) /hpf Urine Mucus (None) /hpf 09/22/22 Range/Units 05:54 WBC (3.8-10.6) k/uL RBC (3.80-5.40) m/uL Hgb (11.4-16.0) gm/dL Hct (34.0-46.0) % MCV (80.0-100.0) fL MCH (25.0-35.0) pg MCHC (31.0-37.0) g/dL RDW (11.5-15.5) % Plt Count (150-450) k/uL MPV Neutrophils % % Lymphocytes % % Monocytes % % Eosinophils % % Basophils % % Neutrophils # (1.3-7.7) k/uL Lymphocytes # (1.0-4.8) k/uL Monocytes # (0-1.0) k/uL Eosinophils # (0-0.7) k/uL Basophils # (0-0.2) k/uL Hypochromasia PT (9.0-12.0) sec INR (<1.2) APTT (22.0-30.0) sec Fibrinogen (200-500) mg/dL D-Dimer (<0.60) mg/L FEU Sodium (137-145) mmol/L Potassium (3.5-5.1) mmol/L Chloride (98-107) mmol/L Carbon Dioxide (22-30) mmol/L Anion Gap mmol/L BUN (7-17) mg/dL Creatinine (0.52-1.04) mg/dL Est GFR (CKD-EPI)AfAm (>60 ml/min/1.73 sqM) Est GFR (CKD-EPI)NonAf (>60 ml/min/1.73 sqM) Glucose (74-99) mg/dL Uric Acid (3.7-7.4) mg/dL Calcium (8.4-10.2) mg/dL Magnesium (1.6-2.3) mg/dL Total Bilirubin (0.2-1.3) mg/dL AST (14-36) U/L ALT (4-34) U/L Alkaline Phosphatase (38-126) U/L Troponin I (0.000-0.034) ng/mL NT-Pro-B Natriuret Pep 242 pg/mL Total Protein (6.3-8.2) g/dL Albumin (3.5-5.0) g/dL Urine Color Urine Appearance (Clear) Urine pH (5.0-8.0) Ur Specific Disputanta (1.001-1.035) Urine Protein (Negative) Urine Glucose (UA) (Negative) Urine Ketones (Negative) Urine Blood (Negative) Urine Nitrite (Negative) Urine Bilirubin (Negative) Urine Urobilinogen (<2.0) mg/dL Ur Leukocyte Esterase (Negative) Urine RBC (0-5) /hpf Urine WBC (0-5) /hpf Ur Squamous Epith Cells (0-4) /hpf Urine Mucus (None) /hpf CBC 09/22/22 Range/Units 05:54 WBC 9.0 (3.8-10.6) k/uL RBC 3.64 L (3.80-5.40) m/uL Hgb 9.6 L (11.4-16.0) gm/dL Hct 30.2 L (34.0-46.0) % Plt Count 284 (150-450) k/uL Comprehensive Metabolic Panel 09/22/22 Range/Units 05:54 Sodium 137 (137-145) mmol/L Potassium 4.6 (3.5-5.1) mmol/L Chloride 107 (98-107) mmol/L Carbon Dioxide 24 (22-30) mmol/L BUN 15 (7-17) mg/dL Creatinine 0.78 (0.52-1.04) mg/dL Glucose 83 (74-99) mg/dL Calcium 9.5 (8.4-10.2) mg/dL AST 26 (14-36) U/L ALT 35 H (4-34) U/L Alkaline Phosphatase 131 H (38-126) U/L Total Protein 6.1 L (6.3-8.2) g/dL Albumin 3.4 L (3.5-5.0) g/dL Current Medications Generic Name Dose Route Start Last Admin Trade Name Freq PRN Reason Stop Dose Admin Acetaminophen 1,000 mg 09/19/22 08:46 09/20/22 16:03 Acetaminophen Tab 500 Mg Tab PO 1,000 mg Q6HR PRN Administration Fever and/ or Pain Hydrocodone Bitart/Acetaminophen 1 each 09/21/22 18:12 09/22/22 13:56 Hydrocodone/Apap 5-325mg 1 Each Tab PO 1 each Q6HR PRN Administration Pain Labetalol HCl 400 mg 09/21/22 16:00 09/22/22 15:57 Labetalol 200 Mg Tab PO 400 mg TID KELLIE Administration Lisinopril 10 mg 09/21/22 21:00 09/21/22 21:01 Lisinopril 10 Mg Tab PO 10 mg HS KELLIE Administration Intake and Output 03/09/22/22 09/22/22 06:59 14:59 22:59 Intake Total 300 Output Total 1500 Balance -1200 Intake: Oral 300 Output: Urine 1500 Other: # Voids 1 4 Weight 91.4 kg 09/22/22 05:54 09/22/22 05:54
[2022-09-22] MEDS ORDERED: hydrALAZINE HCL 25 MG TAB PO PRN (17:37)
[2022-09-22] MEDS: lisinopriL 10 MG TAB PO SCH (21:35)
[2022-09-23] MEDS: LABETALOL 200 MG TAB PO SCH (07:39)
--- NOTE | 2022-09-23 09:00 | P.PN ---
Subjective Progress Note Date: 09/23/22 HISTORY OF PRESENTING ILLNESS Patient is a pleasant 27-year-old female without significant medical problems who presented secondary to left lower extremity swelling and some mild chest pain. She was admitted 09/09 and had a which was uneventful. Patient was concerned that she may have had a blood clot and therefore presented to emergency department. Lower extremity venous ultrasound showed no blood clot. She was additionally having chest pain and CTA showed no PE with some atelectasis and no other significant findings. She denies any fevers or chills or cough. She is found to be hypertensive blood pressures in the 170s to 180s systolic. She was given labetalol. Additionally she was started on lisinopril as well as hydralazine. She is not breast-feeding. She was given magnesium sulfate infusion with improvement of any chest pain. Troponin normal 2, proBNP 314, AST 43, ALT 56, alk phos 170, LDH 685, urinalysis with trace protein, large blood, moderate leukocyte esterase. 09/23 Patient is been reevaluated. She states she slept well during the night, no shortness of breath, no chest pain. She denies any previous history of high blood pressure. Is currently well controlled at 137/84, heart rate is running in the 70s and 90s and pulse ox 97% on room air. Patient is currently receiving labetalol 400 mg 3 times daily PHYSICAL EXAMINATION Vital signs reviewed. CONSTITUTIONAL: No apparent distress. HEENT: Head is normocephalic. Pupils are equal, round. Sclerae anicteric. Mucous membranes of the mouth are moist. No JVD. No carotid bruit. CHEST EXAMINATION: Lungs are clear to auscultation. No chest wall tenderness is noted on palpation or with deep breathing. HEART EXAMINATION: Regular rate and rhythm. S1, S2 heard. No murmurs, gallops or rub. ABDOMEN: Soft, nontender. Positive bowel sounds. EXTREMITIES: 2+ peripheral pulses, no lower extremity edema and no calf tenderness. NEUROLOGIC EXAMINATION: Patient is awake, alert and oriented x3. ASSESSMENT Preeclampsia, presenting approximately 10 days after her , status post 24-hour infusion magnesium. No significant neurologic changes or end organ damage with mild proteinuria noted Hypertension related to above Chest pain resolved Anemia PLAN Blood pressure is much improved currently on labetalol which we recommend continuing following discharge. Patient is cleared from cardiology for disch arge and may follow-up with Dr. Hassan in the office in about 2 weeks. Nurse practitioner note has been reviewed, I agree with the documented findings and plan of care. Patient was seen and examined. Objective - Vital Signs Vital signs: Vital Signs Temp 98.4 F 09/23/22 03:23 Pulse 70 09/23/22 06:00 Resp 16 09/23/22 06:00 BP 137/84 09/23/22 06:00 Pulse Ox 97 09/23/22 06:00 FiO2 Intake & Output 09/22/22 09/23/22 09/23/22 18:59 06:59 18:59 Intake Total 600 Output Total 3500 400 Balance -2900 -400 Weight 87.9 kg Intake: Oral 600 Output: Urine 3500 400 Other: # Voids 4 4 - Labs CBC & Chem 7: 09/22/22 05:54 09/22/22 05:54 Labs: Abnormal Lab Results - Last 24 Hours (Table) 09/22/22 Range/Units 05:54 ALT 35 H (4-34) U/L Alkaline Phosphatase 131 H (38-126) U/L Total Protein 6.1 L (6.3-8.2) g/dL Albumin 3.4 L (3.5-5.0) g/dL
--- NOTE | 2022-09-23 10:55 | P.PN ---
Subjective Progress Note Date: 09/23/22 Patient is a 27-year-old 4 para 4004 who presented to the ER due to chest pain and headache. She was subsequently found to have elevated blood pressures. Patient had undergone a on 09/09/22 and was therefore readmitted to [facility] due to preeclampsia. She was admitted to OB and 09/19. She was started on magnesium sulfate 4 g and then 2 g/h. She did require IV labetalol and was started on oral labetalol, her orally all was uptitrated on the and the patient continued to have elevated blood pressures we were consulted for blood pressure management. Patient seen and examined at bedside. Denies any chest pain, shortness of breath, nausea, vomiting. Vital signs reviewed General: nontoxic, no distress, appears at stated age Cardiovascular: S1S2 reg, no murmur, positive posterior tibial pulse bilateral, Lungs: CTA bilateral, no rhonchi, no rales , no accessory muscle use Ext: no gross muscle atrophy, no edema, no contractures Neuro: CN II-XI grossly intact, no focal neuro deficits Psych: Alert, oriented, appropriate affect Assessment: Preeclampsia with elevated blood pressures, discrepancy in blood pressure between arms Acute blood loss anemia, anticipated outcome Obesity with BMI 39.6 Data Review: BP this AM 125/80 no new labs Plan: BP much improved. Discharge home on labetalol 400 mg TID. Check blood pressure once daily before medications in the morning and then once again 2 hours after a dose. Please make a log to bring to your cardiology appointment. Hold Labetalol if systolic blood pressure is less than 110 before your morning dose. Call cardiology office or Dr. Richards with any dizziness. - can follow-up on echo results at cardiology appointment - Patient medically optimized for discharge at the discretion of [facility] This dictation was prepared using sezmi voice recognition software. Th ough every attempt is made to correct errors during during dictation some may still exist. Objective - Vital Signs Vital signs: Vital Signs Temp 98.2 F 09/23/22 07:44 Pulse 92 09/23/22 07:44 Resp 16 09/23/22 07:44 BP 125/80 09/23/22 07:44 Pulse Ox 96 09/23/22 07:44 FiO2 Intake & Output 09/22/22 09/23/22 09/23/22 18:59 06:59 18:59 Intake Total 600 Output Total 3500 400 Balance -2900 -400 Weight 87.9 kg Intake: Oral 600 Output: Urine 3500 400 Other: # Voids 4 4 1 - Labs CBC & Chem 7: 09/22/22 05:54 09/22/22 05:54
--- NOTE | 2022-09-23 11:49 | P.DS ---
Providers Date of admission: 09/19/22 02:57 Expected date of discharge: 09/23/22 Attending physician: Juanpablo Richards Consults: 09/21/22 17:28 Consult Physician Urgent Consulting Provider: Ayla Adamson Consult Reason/Comments: readmitted vag Preeclampsia post mag Bp managment Do you want consulting provider notified?: Yes 09/22/22 10:33 Consult Physician Routine Consulting Provider: Farhan Hassan Consult Reason/Comments: pre-eclampsia Do you want consulting provider notified?: Yes Primary care physician: [facility] None - Discharge Diagnosis(es) (1) Preeclampsia Current Visit: Yes Status: Acute (2) S/P section Current Visit: No Status: Acute Hospital Course: the patient is a 27-year-old 3 para 3003 who initially presented to the hospital at 10 days status post section delivery secondary to cord prolapse in labor. She presented to the emergency room with significant headache at which time she was found to have significantly elevated blood pressures. Laboratory workup for preeclampsia was undertaken and demonstrated significant laboratory changes including was significantly elevated LDH, uric acid, and mildly elevated liver functions. She was admitted and had 24 hours of magnesium sulfate treatment during which time she was also started on labetalol 100 mg twice daily. She required addition of a third dose during the day following discontinuation of the magnesium. She continued to have significantly elevated blood pressures despite labetalol 100 mg 3 times a day and had an internal medicine consult called with [facility]. Over the course of the following day, she had addition of both hydralazine and lisinopril which failed to adequately control her blood pressures until the evening last night at which time they began to be more controlled. Over the course of last 24 hours, the lisinopril and hydralazine had been withdrawn and her blood pressures have been well controlled on labetalol 400 mg 3 times daily. Cardiology consultation was undertaken and she has undergone an echocardiogram with the formal report pending at this time but is reportedly normal. She does have a follow-up with cardiology as well as with her primary care doctor scheduled she was deemed stable for discharge from a cardiology perspective and internal medicine perspective on hospital day #6. She was to follow up with me in 1 week for an incision check and blood pressure check. She was to follow-up with cardiology and internal medicine as scheduled by them. Instructions included calling for any significantly increased postsurgical concerns but primarily for blood pressure concerns. She was instructed to obtain a blood pressure cuff and to check her blood pressures first thing in the morning and then approximately 2 hours following each dose of labetalol and to hold the labetalol if blood pressures were significantly low, systolic under 110, diastolic under 70. She understood her instructions and agrees to follow up as noted above. Discharge medications included any home medications as well as a prescription for labetalol 400 mg 3 times a day, #180 dispensed with 3 refills. Procedures: #1. Magnesium sulfate seizure prophylaxis #2. Antihypertensive therapy #3. Internal medicine consultation #4. Cardiology consultation #5. Echocardiogram Patient Condition at Discharge: Stable Plan - Discharge Summary Discharge Rx Participant: Yes New Discharge Prescriptions: No Action No Known Home Medications Discharge Medication List No Known Home Medications 09/09/22 [History] Follow up Appointment(s)/Referral(s): Farhan Hassan DO [STAFF PHYSICIAN] - 2 Weeks None,St[facility] [Primary Care Provider] - 1-2 days Juanpablo Richards MD [STAFF PHYSICIAN] - 1 Week Activity/Diet/Wound Care/Special Instructions: Special Instructions: Check blood pressure once daily before medications in the morning and then once again 2 hours after a dose. Please make a log to bring to your cardiology appointment. Hold Labetalol if systolic blood pressure is less than 110 before your morning dose. Call cardiology office or Dr. Richards with any dizziness. Discharge Disposition: HOME SELF-CARE
[2022-09-23 12:04] VITALS: BP 130/89; PULSE 85; TEMP 98.8
--- NOTE | 2022-09-23 12:15 | CA ---
Transthoracic Echo Report Name: Magdalene Jimenez Age: 27 Gender: F : 1995 Exam Date: 09/23/2022 07:44 Exam Location: [place] [facility] Ht (in): 61 Wt (lb): 193 Ordering Physician: Farhan Hassan DO ([email or web address]) Attending/Referring Phys: [employer] Operator Helper Anabella Moore RDCS Procedure CPT: Indications: re: CP Cardiac Hx: Technical Quality: Fair Contrast 1: Total Dose (mL): Contrast 2: Total Dose (mL): MEASUREMENTS (Male / Female) Normal Values 2D ECHO LV Diastolic Diameter PLAX 4.3 cm 4.2 - 5.9 / 3.9 - 5.3 cm LV Systolic Diameter PLAX 2.4 cm IVS Diastolic Thickness 1.2 cm 0.6 - 1.0 / 0.6 - 0.9 cm LVPW Diastolic Thickness 1.4 cm 0.6 - 1.0 / 0.6 - 0.9 cm LV Relative Wall Thickness 0.6 RV Internal Dim ED PLAX 2.5 cm LA Volume 46.3 cm??? 18 - 58 / 22 - 52 cm??? M-MODE Aortic Root Diameter MM 2.4 cm LA Systolic Diameter MM 4.0 cm LA Ao Ratio MM 1.7 AV Cusp Separation MM 1.7 cm DOPPLER AV Peak Velocity 181.2 cm/s AV Peak Gradient 13.1 mmHg AV Mean Velocity 124.0 cm/s AV Mean Gradient 7.0 mmHg AV Velocity Time Integral 34.9 cm LVOT Peak Velocity 157.1 cm/s LVOT Peak Gradient 9.9 mmHg LVOT Velocity Time Integral 32.1 cm MV Area PHT 3.1 cm??? Mitral E Point Velocity 103.4 cm/s Mitral A Point Velocity 68.1 cm/s Mitral E to A Ratio 1.5 MV Deceleration Time 240.9 ms MV E' Velocity 14.1 cm/s Mitral E to MV E' Ratio 7.3 TR Peak Velocity 271.2 cm/s TR Peak Gradient 29.4 mmHg Right Ventricular Systolic Press 34.4 mmHg FINDINGS Left Ventricle Mildly increased left ventricular wall thickness. Normal left ventricular systolic function with no obvious regional wall motion abnormalities. left ventricular cavity size normal. Normal left ventricular diastolic filling pattern. Left ventricular ejection fraction is estimated at 55-60 %. Right Ventricle Normal right ventricular size and function. Right ventricular systolic pressure within normal limits. Right Atrium Normal right atrial size. Left Atrium Normal left atrial size. Mitral Valve Structurally normal mitral valve. Mild mitral regurgitation. Aortic Valve Trileaflet aortic valve. No aortic valve stenosis or regurgitation. Tricuspid Valve Structurally normal tricuspid valve. Mild tricuspid regurgitation. Pulmonic Valve Structurally normal pulmonic valve. Pericardium No pericardial effusion. Aorta Normal size aortic root and proximal ascending aorta. CONCLUSIONS 1. Normal left ventricle size and systolic function 2. Mild mitral and tricuspid regurgitation with normal right-sided pressure Previewed by: Dr. Fabiana Hughes MD (Electronically Signed) Final Date: 23 September 2022 12:14
== END 2022-09-23 12:20 | disposition home or self-care (01) | DRG 561 ==
LOC: EC 00:08 → 4FBP 02:57
PROVIDERS: ADMIT Obstetrics & Gynecology; ATTEND Obstetrics & Gynecology
DX: O14.95 Unspecified pre-eclampsia, complicating the puerperium (principal); D62 Acute posthemorrhagic anemia; E66.9 Obesity, unspecified; Z68.39 Body mass index [BMI] 39.0-39.9, adult; Z28.311 Partially vaccinated for COVID-19; Z28.21 Immunization not carried out because of patient refusal; R00.1 Bradycardia, unspecified; R79.89 Other specified abnormal findings of blood chemistry
CPT/HCPCS: 36415; 71046; 71275; 80053; 81001; 83615; 83735; 83880; 84450; 84460; 84484; 84520; 84550; 85025; 85027; 85379; 85384; 85610; 85730; 87086; 93005; 93306; 96361; 96374; 99285